=== PATIENT | female | born 1965 | race Two or more races ===

== ENCOUNTER 2017-11-18 10:29 | Inpatient (IN) | payer MEDICAID ==
[~2017-11-18] VITALS: Ht 165.1 cm; Wt 72.6 kg
[2017-11-18] VITALS (11 sets, daily range): BP systolic 105–118; BP diastolic 67–88
[2017-11-18] MEDS ORDERED: LORazepam Inj 2mg/ml 1ml IV ONE (10:45)
[2017-11-18] MEDS ORDERED: MILK OF MA2400 MG/10 ORAL (10:52)
[2017-11-18] MEDS ORDERED: SYNTHROID150 MCG ORAL (10:52)
[2017-11-18] MEDS ORDERED: DULCOLAX10 MG RC (10:52)
[2017-11-18] MEDS ORDERED: CIPRO500 MG PO (10:52)
[2017-11-18] MEDS ORDERED: ZOFRAN4 M3 ORAL (10:52)
[2017-11-18] MEDS ORDERED: ROXICODONE15 MG ORAL (10:52)
[2017-11-18] MEDS ORDERED: MULTI VITAMIN1 EACH ORAL (10:52)
[2017-11-18] MEDS ORDERED: FLEET ENEMA133 ML RECTAL (10:52)
[2017-11-18] MEDS ORDERED: TRAMADOL HCL50 MG ORAL (10:52)
[2017-11-18] MEDS ORDERED: TYLENOL EXTRA500 MG ORAL (10:52)
[2017-11-18] MEDS ORDERED: FERROUS SULFAT325 MG ORAL (10:52)
[2017-11-18] MEDS ORDERED: DOCUSATE SODIU100 MG ORAL (10:52)
[2017-11-18] MEDS ORDERED: levETIRAcetam 500mg/NS100ml 100 ML IVPB ONE (11:00)
[2017-11-18 11:04] LABS: HEMATOCRIT 19.1 % (37.0-47.0); MEAN CORPUSCULAR VOLUME 102 FL (80-99); PLATELET COUNT 20 K/UL (150-450); RED BLOOD COUNT 1.88 M/UL (4.20-5.40); RED CELL DISTRIBUTION WIDTH 37.9 % (11.6-14.8)
[2017-11-18 11:08] LABS: HEMOGLOBIN 6.2 G/DL (12.0-16.0); WHITE BLOOD COUNT 31.2 K/UL (4.8-10.8)
[2017-11-18 11:12] LABS: INR 1.5 (0.9-1.1)
[2017-11-18 11:16] LABS: AMMONIA 59 umol/L (11-32); ANION GAP 18 mmol/L (5-15); BLOOD UREA NITROGEN 88 mg/dL (7-18); CARBON DIOXIDE 17 MMOL/L (21-32); CHLORIDE 101 MMOL/L (98-107); SODIUM 136 MMOL/L (136-145)
[2017-11-18 11:27] LABS: ALANINE AMINOTRANSFERASE 273 U/L (12-78); ALBUMIN 2.3 G/DL (3.4-5.0); ALBUMIN/GLOBULIN RATIO 0.4 (1.0-2.7); ALKALINE PHOSPHATASE 397 U/L (46-116); ASPARTATE AMINO TRANSFERASE 892 U/L (15-37); BILIRUBIN,TOTAL 5.8 MG/DL (0.2-1.0); CREATINE KINASE 200 U/L (26-308)
[2017-11-18] MEDS ORDERED: Pantoprazole Inj IVP ONE (11:30)
[2017-11-18] MEDS ORDERED: Cefepime HCl 1 GM in D5W 55 ML IVPB ONE (11:30)
[2017-11-18 11:31] LABS: BILIRUBIN,DIRECT 3.8 MG/DL (0.0-0.3)
[2017-11-18 11:35] LABS: APPEARANCE,URINE SLIGHTLY CLOUDY; BILIRUBIN, URINE 1+ (NEGATIVE); COLOR,URINE BROWN; GLUCOSE, URINE (UA) NEGATIVE (NEGATIVE); KETONES,URINE NEGATIVE (NEGATIVE); LEUKOCYTE ESTERASE ,URINE 1+ (NEGATIVE); NITRITE,URINE NEGATIVE (NEGATIVE); PH,URINE 5 (4.5-8.0); PROTEIN,URINE 4+ (NEGATIVE); UROBILINOGEN,URINE 4 MG/DL (0.0-1.0)
--- NOTE | 2017-11-18 11:41 | Diagnostic Imaging Report ---
Indication: Abdominal pain Technique: XRAY Chest 1v Comparison: None Findings: Heart is within normal limits. A right arm PICC line has its catheter tip the region of the lower SVC. There is a linear density overlying the right midlung which is likely artifactual. Lung markings are noted past this line. No definite pneumothorax. No pleural effusion or focal airspace consolidation. There are degenerative changes of the spine. No acute osseous abnormality. Impression: Limited exam. No definite focal consolidation, pleural effusion or pneumothorax. Curvilinear density projecting of the right lung likely artifactual
[2017-11-18] MEDS ORDERED: Phytonadione 10 mg/mL 1ml amp SUBQ ONE (11:45)
--- NOTE | 2017-11-18 11:46 | Emergency Room Report ---
History of Present Illness General Chief Complaint: Dyspnea/Respdistress Source: Patient, Medical Record Present Illness HPI Patient was supposed to go to [facility] to get a blood transfusion and became altered. Paramedics were called. Accucheck 141. Paramedics noted gaze deviated to R with beating of eyes. No other tonic/clonic activity. No h/o head trauma. Apparently labs were done which showed high WBC (20) and low H/H 6/1. H/O CHF and asthma Recent admission to [facility] for CHF and dx with RUQ mass and liver with cysts and possible masses. H/O hepatitis B and C without h/o encephalopathy. Hypothyroidism No advanced directives or POLST at [facility]. Patient obtunded and unable to give history. Allergies: Coded Allergies: No Known Allergies (Unverified , 11/18/17) Patient History Limited by: medical condition Past Medical History: see triage record, old chart reviewed Social History Narrative from [facility] Reviewed Nursing Documentation: PMH: Agreed; PSxH: Agreed Nursing Documentation-PMH Past Medical History: No History, Except For Hx Cardiac Problems: Yes - HF, hypothyroidism Hx Asthma: Yes Review of Systems All Other Systems: limited Physical Exam Vital Signs Date Time Temp Pulse Resp B/P (MAP) Pulse Ox O2 Delivery O2 Flow Rate FiO2 11/18/17 10:30 97.7 97 20 70/26 100 Non-Rebreather 15.0 97.7 Sp02 EP Interpretation: reviewed, normal General Appearance: lethargic, obese, other - responding minimally to name - gaze still to R upper with nystagmus, Chronically Ill Eyes: bilateral eye PERRL, bilateral eye abnormal EOM, bilateral eye conjunctivae pale, bilateral eye scleral icterus ENT: moist mucus membranes Neck: other - head slightly turned to R Respiratory: decreased breath sounds, other - no wheezes Cardiovascular #1: regular rate, rhythm, edema - minimal Cardiovascular #2: 2+ radial (R) - PICC line R antecubital, 2+ radial (L), 2+ femoral (R) Gastrointestinal: decreased bowel sounds, overweight Rectal: heme positive stool - loose lightl brown Musculoskeletal: other - moves all 4 but minimally, no deformity Neurologic: DTRs symmetric, sensory intact, motor weakness, other - gaze deviation R with vertical nystagmus, min gag Psychiatric: other - stupor/possible sz, but attempts to look at person calling name Skin: pallor, jaundice Procedures Critical Care Time Critical Care Time Total Critical Care Time: 120 min bedside evaluation and treatment excludes procedures (EKG). Reason for critical care: severe sepsis, GI bleed, anemia, + troponin, renal failure, coagulopathy, thrombocytopenia Possible complications: hypotension, hypertension, NC, shock, arrhythmias, metabolic acidosis, end organ damage, respiratory failure. Interventions: fluid resuscitation, antibiotics, protonix, vitamin K , blood, platelets, arrange consultation, assess need for intubation, treatment of focal seizure Course: Patient with ALOC - focal seizure. Discussion with EMS. Ativan/Keppra - improved mentation. Hypotension - fluid resuscitation. Critical anemia and GI bleed - blood ordered, discussed with blood bank also regarding platelets, protonix ordered. Coagulopathy - Vit K ordered. Discussed with pathologist. Reassessment. WBC high - antibiotics ordered. Concern over CHF, but no evidence on CXR. Unable to get answer from patient regarding level of care. Poor O2 tracing - ABG ordered. Not need intubation at this time, but suggest CO2 monitor. See med notes. VS and condition better, however patient still critical on transfer to ICU. Consultations: nursing staff, EMS, GI, cardiology, inf dis, RT, blood bank, pathologist, admitting MD Performed by: Dr. Lovell Tolerated well condition = critical Medical Decision Making Diagnostic Impression: Primary Impression: Focal seizure Additional Impressions: GI bleed Qualified Codes: K92.2 - Gastrointestinal hemorrhage, unspecified Thrombocytpenia Coagulopathy Sepsis Qualified Codes: A41.9 - Sepsis, unspecified organism Hepatic encephalopathy Profound anemia Qualified Codes: D64.9 - Anemia, unspecified DAVID (acute kidney injury) UTI (urinary tract infection) Qualified Codes: N39.0 - Urinary tract infection, site not specified Elevated lipase Hepatitis C Qualified Codes: B18.2 - Chronic viral hepatitis C ER Course Patient presents with nystagmus and gaze to R which could either a focal seizure or bleed. Immediately will treat the patient with Ativan and start emergent w/u. Extremely ill and complicated patient. The nystagmus stopped on its own and the patient had a period of being postictal. After this moving all 4 and fighting with staff and verbalizing. EOM now full. Pupils equal. Transient hypotension improved with fluids. White count is elevated H&H is low platelets are 20,000. Blood bank alerted of need for blood and platelets. Also BC and antibiotics ordered. Keppra ordered for focal seizure. Elevated LFTs, lipase and INR. Vitamin K given. CXR clear and no evidence of CHF or infiltrate. Fluid resuscitation performed. ( Anticipate giving blood.) Pantoprazole given for possible upper GI source of bleed. Records from [facility] reviewed. Elevated BUN creat. Patient's troponin is positive. EKG with low voltage, no hyperacute changes. Platelets are low and the patient has a coagulopathy and therefore aspirin is held at this time. Calling to do speak with the cash shortage investigator and the admitting physician at 1135. Discussed with Dr. Negron @ 11:40. BP better, going to CT. CT no bleed. Discussed with Dr. Singh @ 12:00. Agrees with no aspirin. Focus on physiologic support (blood, bp...) Attempt to speak to patient regarding level of care. Unable to answer any questions at this time. Mr. Thorne here examine patient and old records for GI. Pathologist called to report schistocytes and nucleated RBCs. Dr. Gallagher here examine patient and discussion of antibiotics. Patient improved VS. Possible hypoxia (poor tracing of pulse ox). ABG ordered. I assisted drawing this at bedside. ABG with good oxygenation and compensated metabolic acidosis. Hold off intubation and suggested CO2 monitoring. Admitted ICU. Condition critical. Laboratory Tests Test 11/18/17 10:45 11/18/17 11:00 11/18/17 14:19 11/18/17 18:10 White Blood Count 31.2 K/UL (4.8-10.8) *H Red Blood Count 1.88 M/UL (4.20-5.40) L Hemoglobin 6.2 G/DL (12.0-16.0) *L Hematocrit 19.1 % (37.0-47.0) L Mean Corpuscular Volume 102 FL (80-99) H Mean Corpuscular Hemoglobin 33.2 PG (27.0-31.0) H Mean Corpuscular Hemoglobin Concent 32.7 G/DL (32.0-36.0) Red Cell Distribution Width 37.9 % (11.6-14.8) H Platelet Count 20 K/UL (150-450) L Mean Platelet Volume 5.2 FL (6.5-10.1) L Neutrophils (%) (Auto) % (45.0-75.0) Lymphocytes (%) (Auto) % (20.0-45.0) Monocytes (%) (Auto) % (1.0-10.0) Eosinophils (%) (Auto) % (0.0-3.0) Basophils (%) (Auto) % (0.0-2.0) Differential Total Cells Counted 100 Neutrophils % (Manual) 61 % (45-75) Lymphocytes % (Manual) 21 % (20-45) Monocytes % (Manual) 11 % (1-10) H Eosinophils % (Manual) 0 % (0-3) Basophils % (Manual) 0 % (0-2) Metamyelocytes % 6 % (0-0) H Myelocytes % 1 % (0-0) H Band Neutrophils 0 % (0-8) Nucleated Red Blood Cells 28 /100 WBC Other Cell Type Pathologist comment Platelet Estimate Adequate Platelet Morphology Normal Clumped Platelets 1+ Polychromasia 2+ Anisocytosis 3+ Macrocytosis 2+ Target Cells 1+ Schistocytes 2+ Prothrombin Time 15.3 SEC (9.30-11.50) H Prothrombin Time INR 1.5 (0.9-1.1) H PTT 26 SEC (23-33) Sodium Level 136 MMOL/L (136-145) Potassium Level 5.0 MMOL/L (3.5-5.1) Chloride Level 101 MMOL/L (98-107) Carbon Dioxide Level 17 MMOL/L (21-32) L Anion Gap 18 mmol/L (5-15) H Blood Urea Nitrogen 88 mg/dL (7-18) H Creatinine 4.0 MG/DL (0.55-1.30) H Estimate Glomerular Filtration Rate 11.7 mL/min (>60) Glucose Level 151 MG/DL (74-106) H Calcium Level 9.0 MG/DL (8.5-10.1) Total Bilirubin 5.8 MG/DL (0.2-1.0) H Direct Bilirubin 3.8 MG/DL (0.0-0.3) H Aspartate Amino Transferase (AST) 892 U/L (15-37) H Alanine Aminotransferase (ALT) 273 U/L (12-78) H Alkaline Phosphatase 397 U/L (46-116) H Ammonia 59 umol/L (11-32) H Total Creatine Kinase 200 U/L (26-308) Troponin I 1.276 ng/mL (0.000-0.056) 1.379 ng/mL (0.000-0.056) Pro-B-Type Natriuretic Peptide 3063 pg/mL (0-125) H Total Protein 7.9 G/DL (6.4-8.2) Albumin 2.3 G/DL (3.4-5.0) L Globulin 5.6 g/dL Albumin/Globulin Ratio 0.4 (1.0-2.7) L Lipase 586 U/L (73-393) H Urine Color Brown Urine Appearance Slightly cloudy Urine pH 5 (4.5-8.0) Urine Specific [place] 1.015 (1.005-1.035) Urine Protein 4+ (NEGATIVE) H Urine Glucose (UA) Negative (NEGATIVE) Urine Ketones Negative (NEGATIVE) Urine Occult Blood 5+ (NEGATIVE) H Urine Nitrite Negative (NEGATIVE) Urine Bilirubin 1+ (NEGATIVE) H Urine Ictotest Negative Urine Urobilinogen 4 MG/DL (0.0-1.0) H Urine Leukocyte Esterase 1+ (NEGATIVE) H Urine RBC 5-10 /HPF (0 - 2) H Urine WBC 5-10 /HPF (0 - 2) H Urine Squamous Epithelial Cells Few /LPF (NONE/OCC) Urine Amorphous Sediment Moderate /LPF (NONE) H Urine Bacteria Many /HPF (NONE) H Urine Opiates Screen Negative (NEGATIVE) Urine Barbiturates Screen Negative (NEGATIVE) Phencyclidine (PCP) Screen Negative (NEGATIVE) Urine Amphetamines Screen Negative (NEGATIVE) Urine Benzodiazepines Screen Negative (NEGATIVE) Urine Cocaine Screen Negative (NEGATIVE) Urine Marijuana (THC) Screen Negative (NEGATIVE) Arterial Blood pH 7.390 (7.350-7.450) Arterial Blood Partial Pressure CO2 24.3 mmHg (35.0-45.0) *L Arterial Blood Partial Pressure O2 205.6 mmHg (75.0-100.0) H Arterial Blood HCO3 14.4 mmol/L (22.0-26.0) L Arterial Blood Oxygen Saturation 99.8 % (92.0-98.0) H Arterial Blood Base Excess 9.2 Cristobal Test Positive Hepatitis A IgM Antibody Pending Hepatitis B Surface Antigen Pending Hepatitis B Core IgM Antibody Pending Hepatitis C Antibody Pending EKG Diagnostic Results Rate: normal Rhythm: NSR ST Segments: no acute changes - low voltage Rhythm Strip Diag. Results EP Interpretation: yes Rhythm: NSR, no PVC's, no ectopy Chest X-Ray Diagnostic Results Chest X-Ray Diagnostic Results : Chest X-Ray Ordered: Yes # of Views/Limited/Complete: 1 View Indication: Other Interpretation: no consolidation, no effusion, no pneumothorax Impression: Other Electronically Signed by: Electronically signed by Jacinto Lovell MD Last Vital Signs Date Time Temp Pulse Resp B/P (MAP) Pulse Ox O2 Delivery O2 Flow Rate FiO2 11/18/17 19:00 98.6 82 23 113/74 (87) 96 98.6 11/18/17 16:00 Venturi Mask 55.0 Status: improved Disposition: ADMITTED INPATIENT Condition: Critical Referrals: [facility],REFERRING (PCP) Jacinto Lovell M.D. Nov 18, 2017 11:46
--- NOTE | 2017-11-18 12:29 | Diagnostic Imaging Report ---
Indication: Altered mental status Technique: Continuous helical CT scanning of the head was performed utilizing automated exposure control without intravenous contrast material. Axial and coronal reconstructions were obtained. Comparison: None CT dose: Total DLP 1629.44 mGycm; CTDI vol 70.38 mGy Findings: There is no acute intracranial hemorrhage, mass effect or cortical edema. The ventricles, cisterns and sulci are within normal limits for age. Mastoid air cells are clear. There is complete opacification of the right maxillary sinus. No focal lesions of the bony calvarium or soft tissues of the scalp are seen. IMPRESSION: No evidence of acute intracranial hemorrhage, mass effect or cortical edema. MRI may be obtained for more sensitive evaluation as clinically indicated. Sinus disease with complete opacification of the right maxillary sinus. The CT scanner at [facility] is accredited by the [employer] and the scans are performed using protocols designed to limit radiation exposure to as low as reasonably achievable to attain images of sufficient resolution adequate for diagnostic evaluation.
--- NOTE | 2017-11-18 14:24 | GI Initial Consult Note ---
History of Present Illness General Date patient seen: Nov 18, 2017 Time patient seen: 14:03 Reason for Hospitalization: Dyspnea/Respdistress Referring physician: MELISA DEL VALLE Reason for Consultation: SEVERE ANEMIA Present Illness HPI Patient was on the way to [facility] to get a blood transfusion and became altered. She is a history of an abdominal mass. GI consulted for severe anemia. ROS limited, pt unable to answer any questions at this time. Per RN, has periods of anxiety. All information obtained from medical record. The patient has generalized jaundice. Has history of Hepatitis C without treatment, possible active ?hepatitis B infection , multiple liver masses and CBD dilation 8mm as noted on a recent CT from [facility]. In addition, was noted to have masses on the left adnexal, possible ovarian cysts vs neoplasm. Per report, liver mass biopsy was performed, but no results found in the chart. She presents today with macrocytic hyperchromic anemia, thrombocytopenia, severe LFT elevation and elevated lipase levels. Unknown history of endoscopy / colonoscopy at this time. Home Meds Reported Medications Ondansetron* (ZOFRAN*) 4 Mg Tablet, 4 MG ORAL Q6H PRN for Nausea & Vomiting, TAB 11/18/17 Acetaminophen* (TYLENOL EXTRA STRENGTH*) 500 Mg Tablet, 325 MG ORAL Q8HR PRN for Mild Pain/Temp > 100.5, TAB 0 Refills 11/18/17 Tramadol Hcl* (ULTRAM*) 50 Mg Tablet, 50 MG ORAL Q12HR PRN for For Pain, #30 TAB 0 Refills 11/18/17 Levothyroxine Sodium* (SYNTHROID*) 150 Mcg Tablet, 175 MCG ORAL DAILY, TAB Take in the morning on an empty stomach, at least 30 minutes before food. 11/18/17 OXYCODONE HCl* (ROXICODONE*) 15 Mg Tablet, 10 MG ORAL Q4HR PRN for For Pain, TAB 11/18/17 Multivitamin (MULTI VITAMIN DAILY) 1 Each Tablet, 1 TAB ORAL DAILY, #30 TAB 0 Refills 11/18/17 Magnesium Hydroxide* (MILK OF MAGNESIA*) 2,400 Mg/10 Ml Oral.susp, 30 ML ORAL DAILY, ML 11/18/17 Na Phos,M-B/Na Phos,Di-Ba* (FLEET ENEMA*) 133 Ml Enema, 133 ML RECTAL PRN, ML 0 Refills 11/18/17 Ferrous Sulfate* (FERROUS SULFATE*) 325 Mg Tablet, 325 MG ORAL TWICE A DAY, #60 TAB 0 Refills 11/18/17 Bisacodyl (DULCOLAX) 10 Mg Supp.rect, 10 MG RC PRN, SUPP 11/18/17 Docusate Sodium* (DOCUSATE SODIUM*) 100 Mg Capsule, 100 MG ORAL DAILY, CAP 11/18/17 Ciprofloxacin* (CIPRO*) 500 Mg Tablet, 250 MG PO BID, #14 TAB 11/18/17 Med list reviewed/reconciled: Yes Allergies: Coded Allergies: No Known Allergies (Unverified , 11/18/17) Patient History Limited by: medical condition History Provided By: Medical Record [facility] Narrative Past Medical History: No History, Except For Hx Cardiac Problems: Yes - HF, hypothyroidism Hx Asthma: Yes Past Surgical History: other Social History: Reports: other - unknown Review of Systems All Other Systems: limited Physical Exam Vital Signs Date Time Temp Pulse Resp B/P (MAP) Pulse Ox O2 Delivery O2 Flow Rate FiO2 11/18/17 10:30 97.7 97 20 70/26 100 Non-Rebreather 15.0 97.7 Sp02 EP Interpretation: reviewed, normal Labs Laboratory Tests Test 11/18/17 10:45 11/18/17 11:00 White Blood Count 31.2 K/UL (4.8-10.8) *H Red Blood Count 1.88 M/UL (4.20-5.40) L Hemoglobin 6.2 G/DL (12.0-16.0) *L Hematocrit 19.1 % (37.0-47.0) L Mean Corpuscular Volume 102 FL (80-99) H Mean Corpuscular Hemoglobin 33.2 PG (27.0-31.0) H Mean Corpuscular Hemoglobin Concent 32.7 G/DL (32.0-36.0) Red Cell Distribution Width 37.9 % (11.6-14.8) H Platelet Count 20 K/UL (150-450) L Mean Platelet Volume 5.2 FL (6.5-10.1) L Neutrophils (%) (Auto) % (45.0-75.0) Lymphocytes (%) (Auto) % (20.0-45.0) Monocytes (%) (Auto) % (1.0-10.0) Eosinophils (%) (Auto) % (0.0-3.0) Basophils (%) (Auto) % (0.0-2.0) Differential Total Cells Counted 100 Neutrophils % (Manual) 61 % (45-75) Lymphocytes % (Manual) 21 % (20-45) Monocytes % (Manual) 11 % (1-10) H Eosinophils % (Manual) 0 % (0-3) Basophils % (Manual) 0 % (0-2) Metamyelocytes % 6 % (0-0) H Myelocytes % 1 % (0-0) H Band Neutrophils 0 % (0-8) Nucleated Red Blood Cells 28 /100 WBC Other Cell Type Pathologist comment Platelet Estimate Adequate Platelet Morphology Normal Clumped Platelets 1+ Polychromasia 2+ Anisocytosis 3+ Macrocytosis 2+ Target Cells 1+ Schistocytes 2+ Prothrombin Time 15.3 SEC (9.30-11.50) H Prothromb Time International Ratio 1.5 (0.9-1.1) H Activated Partial Thromboplast Time 26 SEC (23-33) Sodium Level 136 MMOL/L (136-145) Potassium Level 5.0 MMOL/L (3.5-5.1) Chloride Level 101 MMOL/L (98-107) Carbon Dioxide Level 17 MMOL/L (21-32) L Anion Gap 18 mmol/L (5-15) H Blood Urea Nitrogen 88 mg/dL (7-18) H Creatinine 4.0 MG/DL (0.55-1.30) H Estimat Glomerular Filtration Rate 11.7 mL/min (>60) Glucose Level 151 MG/DL (74-106) H Calcium Level 9.0 MG/DL (8.5-10.1) Total Bilirubin 5.8 MG/DL (0.2-1.0) H Direct Bilirubin 3.8 MG/DL (0.0-0.3) H Aspartate Amino Transf (AST/SGOT) 892 U/L (15-37) H Alanine Aminotransferase (ALT/SGPT) 273 U/L (12-78) H Alkaline Phosphatase 397 U/L (46-116) H Ammonia 59 umol/L (11-32) H Total Creatine Kinase 200 U/L (26-308) Troponin I 1.276 ng/mL (0.000-0.056) Pro-B-Type Natriuretic Peptide 3063 pg/mL (0-125) H Total Protein 7.9 G/DL (6.4-8.2) Albumin 2.3 G/DL (3.4-5.0) L Globulin 5.6 g/dL Albumin/Globulin Ratio 0.4 (1.0-2.7) L Lipase 586 U/L (73-393) H Urine Color Brown Urine Appearance Slightly cloudy Urine pH 5 (4.5-8.0) Urine Specific [place] 1.015 (1.005-1.035) Urine Protein 4+ (NEGATIVE) H Urine Glucose (UA) Negative (NEGATIVE) Urine Ketones Negative (NEGATIVE) Urine Occult Blood 5+ (NEGATIVE) H Urine Nitrite Negative (NEGATIVE) Urine Bilirubin 1+ (NEGATIVE) H Urine Ictotest Negative Urine Urobilinogen 4 MG/DL (0.0-1.0) H Urine Leukocyte Esterase 1+ (NEGATIVE) H Urine RBC 5-10 /HPF (0 - 2) H Urine WBC 5-10 /HPF (0 - 2) H Urine Squamous Epithelial Cells Few /LPF (NONE/OCC) Urine Amorphous Sediment Moderate /LPF (NONE) H Urine Bacteria Many /HPF (NONE) H Urine Opiates Screen Negative (NEGATIVE) Urine Barbiturates Screen Negative (NEGATIVE) Phencyclidine (PCP) Screen Negative (NEGATIVE) Urine Amphetamines Screen Negative (NEGATIVE) Urine Benzodiazepines Screen Negative (NEGATIVE) Urine Cocaine Screen Negative (NEGATIVE) Urine Marijuana (THC) Screen Negative (NEGATIVE) General Appearance: no apparent distress, other - generalized jaundice Head: normocephalic EENT: PERRL/EOMI, normal ENT inspection Neck: supple Respiratory: normal breath sounds, no respiratory distress Cardiovascular: normal rate Gastrointestinal: normal inspection, non tender, soft, normal bowel sounds, non -distended Rectal: deferred Genitourinary: no CVA tenderness Musculoskeletal: normal inspection, back normal Neurologic: alert, responsive Skin: normal inspection, no rash, warm/dry, palpation normal, well hydrated, jaundice Lymphatic: no adenopathy Current Medications Current Medications Medications (Trade) Dose Ordered Sig/Lluvia Route PRN Reason Start Time Stop Time Status Last Admin Dose Admin Aztreonam 1 gm/ Dextrose 55 ml @ 110 mls/hr Q8HR IVPB 11/18/17 14:00 11/25/17 13:59 UNV Daptomycin 300 mg/ Sodium Chloride 55 ml @ 100 mls/hr Q48H IV 11/18/17 14:00 11/25/17 13:59 UNV Sodium Chloride 1,000 ml @ 300 mls/hr Q3H20M IV 11/18/17 10:45 12/18/17 10:44 11/18/17 12:34 GI: Plan Problems: (1) Anemia (2) Hepatitis C (3) Hepatitis B (4) Ovarian mass (5) LFT elevation (6) Elevated lipase (7) Liver lesion (8) GI bleed Plan Abdominal U/S reviewed >> possible liver masses CTAP reviewed >> see full report in physical chart. - CBD 8mm dilation. - multiple liver lesions - possible ovarian cyst vs neoplasm utox negative most concerning for liver vs ovarian metastasis causing severe LFT elevation>> consider oncology consult obtain biopsy results of liver lesion from [place]. anemia work up OB stool r/o GI bleed monitor H&H, prn transfusions bowel regime ppi check HSV, CMV autoimmune markers >> CONNIE, SMA, IgG tumor markers >> CEA, CA-125, AFP trend lipase fu labs Discussed with Dr. Atkins. Thank you for this patient referral, we will follow. The patient was seen and examined at bedside and all new and available data was reviewed in the patients chart. I agree with the above findings, impression and plan. (Patient seen earlier today. Signature stamp does not reflect patient encounter time.). - MD Fadumo Buck,[facility] METHODS ENGINEER Nov 18, 2017 14:24
--- NOTE | 2017-11-18 14:57 | Infectious Diseases Prog Note ---
Assessment/Plan Problems: (1) Leukocytosis Assessment & Plan: rule out sepsis , will start daptomycin and aztreonam pending blood culture , monitor WBC (2) Hypotension Assessment & Plan: suspect due to anemia , rule out sepsis, continue wide spectrum antibiotics pending cultures , transfuse blood as needed (3) DAVID (acute kidney injury) Assessment & Plan: due to the above, continue hydration and blood transfusion , monitor UOP, avoid nephrotoxics , consult renal (4) LFT elevation Assessment & Plan: suspect liver shock , will order hepatitis panel , monitor LFT closely (5) Focal seizure Assessment & Plan: etiology?, consult neurology continue neuro check (6) GI bleed Assessment & Plan: monitor H/H , transfuse as needed , GI following (7) UTI (urinary tract infection) Assessment & Plan: on aztreonam already pending culture Subjective Allergies: Coded Allergies: No Known Allergies (Unverified , 11/18/17) Objective Vital Signs Last 24 Hour Vital Signs Date Time Temp Pulse Resp B/P (MAP) Pulse Ox O2 Delivery O2 Flow Rate FiO2 11/18/17 14:40 98.3 72 20 98.3 11/18/17 14:10 98.0 76 18 98.0 11/18/17 14:00 98.0 76 18 118/88 90 Simple Mask 10.0 98.0 11/18/17 13:40 97.4 76 18 97.4 11/18/17 13:35 97.2 79 16 97.2 11/18/17 13:30 97.0 77 16 97.0 11/18/17 13:25 97.0 77 14 97.0 11/18/17 12:00 78 16 113/76 98 Nasal Cannula 5.0 11/18/17 10:40 Non-Rebreather 15.0 11/18/17 10:30 97.7 97 20 70/26 100 Non-Rebreather 15.0 97.7 Height (Feet): 5 Height (Inches): 5.00 Weight (Pounds): 110 Laboratory Tests Test 11/18/17 10:45 11/18/17 11:00 White Blood Count 31.2 K/UL (4.8-10.8) *H Red Blood Count 1.88 M/UL (4.20-5.40) L Hemoglobin 6.2 G/DL (12.0-16.0) *L Hematocrit 19.1 % (37.0-47.0) L Mean Corpuscular Volume 102 FL (80-99) H Mean Corpuscular Hemoglobin 33.2 PG (27.0-31.0) H Mean Corpuscular Hemoglobin Concent 32.7 G/DL (32.0-36.0) Red Cell Distribution Width 37.9 % (11.6-14.8) H Platelet Count 20 K/UL (150-450) L Mean Platelet Volume 5.2 FL (6.5-10.1) L Neutrophils (%) (Auto) % (45.0-75.0) Lymphocytes (%) (Auto) % (20.0-45.0) Monocytes (%) (Auto) % (1.0-10.0) Eosinophils (%) (Auto) % (0.0-3.0) Basophils (%) (Auto) % (0.0-2.0) Differential Total Cells Counted 100 Neutrophils % (Manual) 61 % (45-75) Lymphocytes % (Manual) 21 % (20-45) Monocytes % (Manual) 11 % (1-10) H Eosinophils % (Manual) 0 % (0-3) Basophils % (Manual) 0 % (0-2) Metamyelocytes % 6 % (0-0) H Myelocytes % 1 % (0-0) H Band Neutrophils 0 % (0-8) Nucleated Red Blood Cells 28 /100 WBC Other Cell Type Pathologist comment Platelet Estimate Adequate Platelet Morphology Normal Clumped Platelets 1+ Polychromasia 2+ Anisocytosis 3+ Macrocytosis 2+ Target Cells 1+ Schistocytes 2+ Prothrombin Time 15.3 SEC (9.30-11.50) H Prothromb Time International Ratio 1.5 (0.9-1.1) H Activated Partial Thromboplast Time 26 SEC (23-33) Sodium Level 136 MMOL/L (136-145) Potassium Level 5.0 MMOL/L (3.5-5.1) Chloride Level 101 MMOL/L (98-107) Carbon Dioxide Level 17 MMOL/L (21-32) L Anion Gap 18 mmol/L (5-15) H Blood Urea Nitrogen 88 mg/dL (7-18) H Creatinine 4.0 MG/DL (0.55-1.30) H Estimat Glomerular Filtration Rate 11.7 mL/min (>60) Glucose Level 151 MG/DL (74-106) H Calcium Level 9.0 MG/DL (8.5-10.1) Total Bilirubin 5.8 MG/DL (0.2-1.0) H Direct Bilirubin 3.8 MG/DL (0.0-0.3) H Aspartate Amino Transf (AST/SGOT) 892 U/L (15-37) H Alanine Aminotransferase (ALT/SGPT) 273 U/L (12-78) H Alkaline Phosphatase 397 U/L (46-116) H Ammonia 59 umol/L (11-32) H Total Creatine Kinase 200 U/L (26-308) Troponin I 1.276 ng/mL (0.000-0.056) Pro-B-Type Natriuretic Peptide 3063 pg/mL (0-125) H Total Protein 7.9 G/DL (6.4-8.2) Albumin 2.3 G/DL (3.4-5.0) L Globulin 5.6 g/dL Albumin/Globulin Ratio 0.4 (1.0-2.7) L Lipase 586 U/L (73-393) H Urine Color Brown Urine Appearance Slightly cloudy Urine pH 5 (4.5-8.0) Urine Specific [place] 1.015 (1.005-1.035) Urine Protein 4+ (NEGATIVE) H Urine Glucose (UA) Negative (NEGATIVE) Urine Ketones Negative (NEGATIVE) Urine Occult Blood 5+ (NEGATIVE) H Urine Nitrite Negative (NEGATIVE) Urine Bilirubin 1+ (NEGATIVE) H Urine Ictotest Negative Urine Urobilinogen 4 MG/DL (0.0-1.0) H Urine Leukocyte Esterase 1+ (NEGATIVE) H Urine RBC 5-10 /HPF (0 - 2) H Urine WBC 5-10 /HPF (0 - 2) H Urine Squamous Epithelial Cells Few /LPF (NONE/OCC) Urine Amorphous Sediment Moderate /LPF (NONE) H Urine Bacteria Many /HPF (NONE) H Urine Opiates Screen Negative (NEGATIVE) Urine Barbiturates Screen Negative (NEGATIVE) Phencyclidine (PCP) Screen Negative (NEGATIVE) Urine Amphetamines Screen Negative (NEGATIVE) Urine Benzodiazepines Screen Negative (NEGATIVE) Urine Cocaine Screen Negative (NEGATIVE) Urine Marijuana (THC) Screen Negative (NEGATIVE) Current Medications Medications (Trade) Dose Ordered Sig/Lluvia Route PRN Reason Start Time Stop Time Status Last Admin Dose Admin Aztreonam 1 gm/ Dextrose 55 ml @ 110 mls/hr Q8H IVPB 11/18/17 17:00 11/25/17 16:59 Daptomycin 300 mg/ Sodium Chloride 55 ml @ 100 mls/hr Q48H IV 11/18/17 18:00 11/25/17 17:59 Sodium Chloride 1,000 ml @ 300 mls/hr Q3H20M IV 11/18/17 10:45 12/18/17 10:44 11/18/17 12:34 Ann Gallagher M.D. Nov 18, 2017 14:57
[2017-11-18] MEDS: Aztreonam Inj 1 GM in D5W 55 ML IVPB SCH (17:00)
[2017-11-18] MEDS ORDERED: DAPTOmycin 300 MG in NS 55 ML IV SCH (18:00)
--- NOTE | 2017-11-18 18:38 | Cardiology Progress Note ---
Assessment/Plan Assessment/Plan [id number] cardia enzyme abn likey demand related due to profound thrombocytopenias anemia n renal failure pt is not a candidate for any antiplt of anticoagulant repeat ekg adn echo and torp transfuse prbc gi fu lacutlose ? seem qutie ill and at isk f dying Objective Last 24 Hour Vital Signs Date Time Temp Pulse Resp B/P (MAP) Pulse Ox O2 Delivery O2 Flow Rate FiO2 11/18/17 17:00 75 23 116/76 (89) 98 11/18/17 16:00 97.9 75 20 116/76 (89) 98 97.9 11/18/17 16:00 Venturi Mask 55.0 11/18/17 16:00 Venturi Mask 50.0 11/18/17 16:00 75 11/18/17 15:45 98.2 73 27 112/76 100 Simple Mask 15.0 98.2 11/18/17 15:02 98.2 73 27 112/76 100 Simple Mask 15.0 98.2 11/18/17 14:40 98.3 72 20 98.3 11/18/17 14:10 98.0 76 18 98.0 11/18/17 14:00 98.0 76 18 118/88 90 Simple Mask 10.0 98.0 11/18/17 13:40 97.4 76 18 97.4 11/18/17 13:35 97.2 79 16 97.2 11/18/17 13:30 97.0 77 16 97.0 11/18/17 13:25 97.0 77 14 97.0 11/18/17 12:00 78 16 113/76 98 Nasal Cannula 5.0 11/18/17 10:40 Non-Rebreather 15.0 11/18/17 10:30 97.7 97 20 70/26 100 Non-Rebreather 15.0 97.7 Laboratory Tests Test 11/18/17 10:45 11/18/17 11:00 11/18/17 14:19 White Blood Count 31.2 K/UL (4.8-10.8) *H Red Blood Count 1.88 M/UL (4.20-5.40) L Hemoglobin 6.2 G/DL (12.0-16.0) *L Hematocrit 19.1 % (37.0-47.0) L Mean Corpuscular Volume 102 FL (80-99) H Mean Corpuscular Hemoglobin 33.2 PG (27.0-31.0) H Mean Corpuscular Hemoglobin Concent 32.7 G/DL (32.0-36.0) Red Cell Distribution Width 37.9 % (11.6-14.8) H Platelet Count 20 K/UL (150-450) L Mean Platelet Volume 5.2 FL (6.5-10.1) L Neutrophils (%) (Auto) % (45.0-75.0) Lymphocytes (%) (Auto) % (20.0-45.0) Monocytes (%) (Auto) % (1.0-10.0) Eosinophils (%) (Auto) % (0.0-3.0) Basophils (%) (Auto) % (0.0-2.0) Differential Total Cells Counted 100 Neutrophils % (Manual) 61 % (45-75) Lymphocytes % (Manual) 21 % (20-45) Monocytes % (Manual) 11 % (1-10) H Eosinophils % (Manual) 0 % (0-3) Basophils % (Manual) 0 % (0-2) Metamyelocytes % 6 % (0-0) H Myelocytes % 1 % (0-0) H Band Neutrophils 0 % (0-8) Nucleated Red Blood Cells 28 /100 WBC Other Cell Type Pathologist comment Platelet Estimate Adequate Platelet Morphology Normal Clumped Platelets 1+ Polychromasia 2+ Anisocytosis 3+ Macrocytosis 2+ Target Cells 1+ Schistocytes 2+ Prothrombin Time 15.3 SEC (9.30-11.50) H Prothromb Time International Ratio 1.5 (0.9-1.1) H Activated Partial Thromboplast Time 26 SEC (23-33) Sodium Level 136 MMOL/L (136-145) Potassium Level 5.0 MMOL/L (3.5-5.1) Chloride Level 101 MMOL/L (98-107) Carbon Dioxide Level 17 MMOL/L (21-32) L Anion Gap 18 mmol/L (5-15) H Blood Urea Nitrogen 88 mg/dL (7-18) H Creatinine 4.0 MG/DL (0.55-1.30) H Estimat Glomerular Filtration Rate 11.7 mL/min (>60) Glucose Level 151 MG/DL (74-106) H Calcium Level 9.0 MG/DL (8.5-10.1) Total Bilirubin 5.8 MG/DL (0.2-1.0) H Direct Bilirubin 3.8 MG/DL (0.0-0.3) H Aspartate Amino Transf (AST/SGOT) 892 U/L (15-37) H Alanine Aminotransferase (ALT/SGPT) 273 U/L (12-78) H Alkaline Phosphatase 397 U/L (46-116) H Ammonia 59 umol/L (11-32) H Total Creatine Kinase 200 U/L (26-308) Troponin I 1.276 ng/mL (0.000-0.056) Pro-B-Type Natriuretic Peptide 3063 pg/mL (0-125) H Total Protein 7.9 G/DL (6.4-8.2) Albumin 2.3 G/DL (3.4-5.0) L Globulin 5.6 g/dL Albumin/Globulin Ratio 0.4 (1.0-2.7) L Lipase 586 U/L (73-393) H Urine Color Brown Urine Appearance Slightly cloudy Urine pH 5 (4.5-8.0) Urine Specific [place] 1.015 (1.005-1.035) Urine Protein 4+ (NEGATIVE) H Urine Glucose (UA) Negative (NEGATIVE) Urine Ketones Negative (NEGATIVE) Urine Occult Blood 5+ (NEGATIVE) H Urine Nitrite Negative (NEGATIVE) Urine Bilirubin 1+ (NEGATIVE) H Urine Ictotest Negative Urine Urobilinogen 4 MG/DL (0.0-1.0) H Urine Leukocyte Esterase 1+ (NEGATIVE) H Urine RBC 5-10 /HPF (0 - 2) H Urine WBC 5-10 /HPF (0 - 2) H Urine Squamous Epithelial Cells Few /LPF (NONE/OCC) Urine Amorphous Sediment Moderate /LPF (NONE) H Urine Bacteria Many /HPF (NONE) H Urine Opiates Screen Negative (NEGATIVE) Urine Barbiturates Screen Negative (NEGATIVE) Phencyclidine (PCP) Screen Negative (NEGATIVE) Urine Amphetamines Screen Negative (NEGATIVE) Urine Benzodiazepines Screen Negative (NEGATIVE) Urine Cocaine Screen Negative (NEGATIVE) Urine Marijuana (THC) Screen Negative (NEGATIVE) Arterial Blood pH 7.390 (7.350-7.450) Arterial Blood Partial Pressure CO2 24.3 mmHg (35.0-45.0) *L Arterial Blood Partial Pressure O2 205.6 mmHg (75.0-100.0) H Arterial Blood HCO3 14.4 mmol/L (22.0-26.0) L Arterial Blood Oxygen Saturation 99.8 % (92.0-98.0) H Arterial Blood Base Excess 9.2 Cristobal Test Positive Jake Singh MD Nov 18, 2017 18:38
[2017-11-18] MEDS ORDERED: Dyna-Hex 2% Top Sol 2oz TOPIC SCH (21:00)
--- NOTE | 2017-11-18 23:31 | Consultation ---
DATE OF CONSULTATION: 11/18/2017 INFECTIOUS DISEASES CONSULTATION CONSULTING PHYSICIAN: Ann Gallagher M.D. REQUESTING PHYSICIAN: Mitch Negron M.D. REASON FOR CONSULTATION: Sepsis, leukocytosis with multiple organ failure. Recommendation for antibiotics treatment. HISTORY OF PRESENT ILLNESS: The patient is a 52-year-old female with past medical history of cardiac disease with heart failure, hypothyroidism, asthma who was on her way to [place] for blood transfusion became altered on the road so she was brought in to the emergency room at [facility] with nystagmus. The patient was also having GI bleeding. Her nystagmus was stopped on her own in the emergency room but she continued to be hypotensive with significant leukocytosis in the range of 30,000. Hemoglobin was found to be low, also had platelet which was 20,000. She was started empirically on antibiotics and Infectious Diseases consultation was requested for antibiotics treatment and further management. As of note, the patient was lethargic in the emergency room, responsive to verbal commands by nodding her head but could not provide any good history. History was mainly obtained from the medical record and medical staff. REVIEW OF SYSTEMS: Unable to obtain at this point. The patient is lethargic, unable to provide good history. PAST MEDICAL HISTORY: Significant for cardiac disease, congestive heart failure, hypothyroidism, and asthma. PAST SURGICAL HISTORY: Not on record. ALLERGIES: She has no known drug allergy per record. MEDICATIONS: She received cefepime and metronidazole in the emergency room. For the rest of her medications, please refer to [facility]. SOCIAL HISTORY: The patient unclear where she lives. Unclear whether she used any drugs or alcohol recently. FAMILY HISTORY: Not able to obtain. PHYSICAL EXAMINATION: VITAL SIGNS: Temperature 98.2, pulse 73, respirations 27, blood pressure 112/76, saturation 100% on Ventimask. GENERAL: Middle-aged female, lying in bed, on oxygen via mask, responsive to verbal commands, pale looking with jaundice and her sclera seems comfortable, not in distress. HEENT: Normocephalic and atraumatic. Pupils are reactive to light, jaundiced sclera. Dry oral mucosa. No exudate. NECK: Supple. No lymphadenopathy. CARDIOVASCULAR: Regular rate and rhythm. No murmur or gallop. LUNGS: She had diminished breathing sounds at the bases. No wheezing or rhonchi. Normal breathing efforts. ABDOMEN: Soft. Distended. Not tender. I could not appreciate hepatomegaly or ascites. No rebound. EXTREMITIES: Trace edema. No cyanosis. SKIN: No rash. No hives. LABORATORY AND DIAGNOSTIC DATA: Labs showed white count of 31.2, hemoglobin of 6.2, platelet count of 20. BUN of 88 creatinine of 4. AST of 892 and ALT of 273, alkaline phosphatase 397. Ammonia level of 59. Lipase of 586. Troponin 1.27. Urinalysis showed +1 leukocyte esterase, WBC 5 to 10 with many bacteria. Toxicology screening was negative for drugs. IMAGING: Head CT scan showed no evidence of acute intracranial hemorrhage, mass effect, or cortical edema. Chest x-ray showed limited examination, no definite focal consolidation, pleural effusion or pneumothorax. ASSESSMENT AND RECOMMENDATION: 1. Leukocytosis with hypotension, rule out sepsis. We will start daptomycin renal dosed and aztreonam, pending blood culture and urine culture results. We will deescalate antibiotics based on her clinical progress and culture results and her response to treatment. 2. Hypotension, possible sepsis. Suspect mainly due to anemia. We will continue wide-spectrum antibiotics for now, pending culture, transfuse blood as needed. Monitor hemoglobin and hematocrit, continue fluids for hydration and pressor if needed. 3. Urinary tract infection, the patient already on aztreonam. Pending urine culture results. 4. Acute renal failure due to the above. Continue hydration and blood transfusion to improve renal perfusion. Monitor urine output. Avoid nephrotoxics. Consult Renal. 5. Elevated liver function tests. Suspect liver shock related. We will order hepatitis panel. Monitor liver function closely. 6. Focal seizure with nystagmus, etiology unclear. Recommend Neurology consult. Continue neuro check and intensive care unit. 7. Gastrointestinal bleeding with severe anemia. Monitor hemoglobin and hematocrit. Transfuse as needed. Gastrointestinal team has been already consulted, may need endoscopy. Thank you for the consult. Infectious Disease will continue to follow. Ann Gallagher M.D. DR: Tayo JOB#: [id number] CC:
[2017-11-19] VITALS (24 sets, daily range): BP systolic 101–122; BP diastolic 65–96
[2017-11-19] MEDS: Aztreonam Inj 1 GM in D5W 55 ML IVPB SCH ×3 (01:06→17:25)
--- NOTE | 2017-11-19 03:30 | Consultation ---
DATE OF CONSULTATION: 11/18/2017 CARDIOLOGY CONSULTATION REFERRING PHYSICIAN: Mitch Negron M.D. CONSULTING PHYSICIAN: Jake Singh M.D. REASON FOR REFERRAL: Abnormal cardiac enzymes. HISTORY OF PRESENT ILLNESS: This is an unfortunate middle-aged female who is not able to provide any information. The information is obtained from the patient's chart, which includes data from [facility] where she had previously presented on 11/12/2017 and was diagnosed with multiple lesions in the liver concerning for metastatic lesion. She has a history of cirrhosis, hepatitis C, and hepatitis B. She presented to the hospital for blood transfusion because of anemia that was noted. She was altered and she had apparently a seizure and was brought to the emergency room here at [facility] and was attended to by Dr. Jacinto Lovell. The patient is not able to provide any meaningful history whatsoever. She was noted to have significant thrombocytopenia, significant anemia, and a CT scan was performed. I did discuss the case with Dr. Lovell in the emergency room. At the time of her initial presentation, she had troponin of 1.2. Her EKG was rather benign, and because of severe thrombocytopenia of 20,000 and anemia, she was not a candidate for any antiplatelet or anticoagulation therapy. She remains altered at this time. She is not able to provide any meaningful history. PAST MEDICAL HISTORY: Positive for multiple lesions in the liver concerning for metastatic lesion as far as the discharge summary from [facility] is noted. She has history of cirrhosis; history of hepatitis C, never been treated; and possible hepatitis B and chronic abdominal pain. She underwent a CT-guided biopsy apparently of these lesions in the liver, results are not really available. She was supposed to follow up with [facility] in one week for evaluation of the liver biopsy results. I am not sure if that has happened. She also has a history of asthma, questionable history of CHF, history of HIV infection according to the chart and GI notation by Dr. Deven Edwards, and has had thrombocytopenia, normocytic and normochromic anemia, underlying chronic kidney disease also have been documented in the prior previous notes as well, although she is reportedly not allergic to any medications. SOCIAL HISTORY: Recorded in the chart as not smoking or drinking. She has a history of intravenous drug abuse in the past as noted. FAMILY HISTORY: Denies any family history of major medical problems. REVIEW OF SYSTEMS: Unable to obtain. PHYSICAL EXAMINATION: GENERAL: A middle-aged female, in no respiratory distress. She is rather calm, lying down with head of bed approximately 10 degrees of elevation. Face mask in place. Saturations are unobtainable because of poor tracings. LUNGS: Appear to be clear to auscultation and percussion. CARDIAC: Regular rate. No heaves, thrills, or gallops noted. ABDOMEN: Soft. EXTREMITIES: She has pneumatic compression stockings in place. NEUROLOGIC: She is responsive, but not communicated. LABORATORY AND DIAGNOSTIC DATA: White count of 31.2 with hemoglobin 6.2 and platelet count of 20,000. Sodium is 136, potassium 4.0, chloride 101, bicarbonate 17, BUN of 88, creatinine 4.0, and glucose of 151. Total bilirubin of 5.8 with direct bilirubin of 3.8. AST of 893, ALT of 270, alkaline phosphatase of 397, and ammonia 59. Troponin level 1.276, proBNP of 3063. Albumin of 2.3 and lipase of 586. She had a CT scan of her brain that showed no evidence of intracranial hemorrhage, mass effect, or cortical edema. Sinus disease with complete opacification in right maxillary sinus. A chest x-ray was performed and it is showing limited exam. No focal consolidation, pleural effusions, or pneumothorax are noted. Her electrocardiogram obtained in the emergency room shows normal sinus rhythm, normal QRS axis, really no ST or T-wave abnormalities of any significant degree. ASSESSMENT AND PLAN: 1. Multiple liver masses, felt to be possibly metastatic lesions. 2. Encephalopathy, possibly hepatic in origin. 3. History of cirrhosis. 4. Profound thrombocytopenia. 5. Profound anemia. 6. Abnormal cardiac enzymes, possibly related to demand. 7. Acute renal failure. 8. Abnormal liver function tests secondary to above. Dr. Negron, this patient was seen in cardiac consultation. The patient appears to be rather comfortable at the present time. Certainly with the degree of thrombocytopenia and anemia, she is not a candidate for an antiplatelet or anticoagulation therapy at this time. Repeat cardiac enzymes should be performed. Echocardiogram will be ordered. Repeat EKG will be ordered. She seems to be in and out of some kind of responsive state. She seems to deny any pain at the present time for what it is worth. Nevertheless, with the profound degree of abnormality that she has in her blood testing she is not a candidate for any cardiac treatment or workup at this time and should be treated conservatively. Results of biopsy should be obtained that would include antiplatelet or anticoagulation therapy. She certainly remains critically ill and at risk of dying and should be observed in the intensive care unit for the time being. The duration of this care is 40 minutes. Jake Singh M.D. DR: KIRBY JOB#: [id number] CC:
[2017-11-19 04:50] LABS: HEMATOCRIT 20.3 % (37.0-47.0); HEMOGLOBIN 7.4 G/DL (12.0-16.0); MEAN CORPUSCULAR VOLUME 93 FL (80-99); PLATELET COUNT 63 K/UL (150-450); RED BLOOD COUNT 2.18 M/UL (4.20-5.40); RED CELL DISTRIBUTION WIDTH 32.8 % (11.6-14.8); WHITE BLOOD COUNT 21.3 K/UL (4.8-10.8)
[2017-11-19 07:01] LABS: ALBUMIN/GLOBULIN RATIO 0.4 (1.0-2.7); AMYLASE 97 U/L (25-115); ANION GAP 20 mmol/L (5-15); BILIRUBIN,TOTAL 7.9 MG/DL (0.2-1.0); BLOOD UREA NITROGEN 94 mg/dL (7-18); CALCIUM 9.2 MG/DL (8.5-10.1); CARBON DIOXIDE 15 MMOL/L (21-32); CHLORIDE 106 MMOL/L (98-107); POTASSIUM 4.4 MMOL/L (3.5-5.1); SODIUM 141 MMOL/L (136-145)
[2017-11-19 07:50] LABS: ALANINE AMINOTRANSFERASE 263 U/L (12-78); ALKALINE PHOSPHATASE 357 U/L (46-116); ASPARTATE AMINO TRANSFERASE 1018 U/L (15-37)
[2017-11-19 07:53] LABS: BILIRUBIN,DIRECT 4.2 MG/DL (0.0-0.3)
[2017-11-19] MEDS ORDERED: Pantoprazole Inj IVP SCH (09:00)
--- NOTE | 2017-11-19 10:28 | Cardiology Progress Note ---
Assessment/Plan Assessment/Plan 1. Multiple liver masses, felt to be possibly metastatic lesions. 2. Encephalopathy, possibly hepatic in origin. 3. History of cirrhosis. 4. Profound thrombocytopenia. 5. Profound anemia. 6. Abnormal cardiac enzymes, possibly related to demand. 7. Acute renal failure. 8. Abnormal liver function tests secondary to above. 9. Seizure 10. NSTEMI type 2 s/p plt adn prbc tx with better levels today trop mildly elevated and min trending up harper likely deman related renal failrue is worse bp is better more awake may need lactulose lft adn lipase both worse ekg no st or t wave abn no sx of acs gi and id noted still qutie ill icu care reepat trop for trend await echo not a candidate for chronic anticoagualtion or antiplt due to sever thormbocytopenia watch cbc trop ekg yumiko Subjective Cardiovascular: Denies: chest pain, lightheadedness, palpitations Respiratory: Denies: shortness of breath Gastrointestinal/Abdominal: Denies: abdominal pain Genitourinary: Denies: burning Subjective more awake than yest Objective Last 24 Hour Vital Signs Date Time Temp Pulse Resp B/P (MAP) Pulse Ox O2 Delivery O2 Flow Rate FiO2 11/19/17 10:00 94 24 111/96 (101) 94 11/19/17 09:00 93 24 105/76 (86) 94 11/19/17 08:00 Nasal Cannula 1.0 11/19/17 08:00 94 11/19/17 08:00 97.6 94 23 105/75 (85) 93 97.6 11/19/17 07:00 93 24 122/93 (103) 96 11/19/17 06:00 93 26 113/72 (86) 95 11/19/17 05:00 91 26 121/75 (90) 95 11/19/17 04:00 97.3 88 23 121/75 (90) 96 97.3 11/19/17 04:00 Venturi Mask 12.0 11/19/17 04:00 88 11/19/17 03:00 85 23 121/75 (90) 97 11/19/17 02:00 76 23 118/83 (95) 97 11/19/17 01:00 76 23 117/79 (92) 97 11/19/17 00:00 80 11/19/17 00:00 98.0 79 23 114/74 (87) 95 98.0 11/19/17 00:00 Venturi Mask 12.0 11/18/17 23:00 77 22 107/80 (89) 95 11/18/17 22:00 80 23 109/76 (87) 95 11/18/17 21:00 78 24 105/75 (85) 100 11/18/17 20:00 98.8 81 22 108/67 (81) 100 98.8 11/18/17 20:00 Venturi Mask 12.0 11/18/17 20:00 78 11/18/17 19:30 Nasal Cannula 1.0 24 11/18/17 19:00 98.6 82 23 113/74 (87) 96 98.6 11/18/17 19:00 95 Nasal Cannula 1.0 24 11/18/17 18:00 78 27 109/73 (85) 90 11/18/17 17:00 75 23 116/76 (89) 98 11/18/17 16:00 97.9 75 20 116/76 (89) 98 97.9 11/18/17 16:00 Venturi Mask 55.0 11/18/17 16:00 Venturi Mask 50.0 11/18/17 16:00 75 11/18/17 15:45 98.2 73 27 112/76 100 Simple Mask 15.0 98.2 11/18/17 15:02 98.2 73 27 112/76 100 Simple Mask 15.0 98.2 11/18/17 14:40 98.3 72 20 98.3 11/18/17 14:10 98.0 76 18 98.0 11/18/17 14:00 98.0 76 18 118/88 90 Simple Mask 10.0 98.0 11/18/17 13:40 97.4 76 18 97.4 11/18/17 13:35 97.2 79 16 97.2 11/18/17 13:30 97.0 77 16 97.0 11/18/17 13:25 97.0 77 14 97.0 11/18/17 12:00 78 16 113/76 98 Nasal Cannula 5.0 11/18/17 10:40 Non-Rebreather 15.0 11/18/17 10:30 97.7 97 20 70/26 100 Non-Rebreather 15.0 97.7 General Appearance: no apparent distress, alert Neck: supple Cardiovascular: normal rate, regular rhythm Respiratory/Chest: lungs clear Abdomen: normal bowel sounds, non tender, soft Extremities: no swelling Intake and Output 11/18/17 11/19/17 19:00 07:00 Intake Total 1610 ml 675 ml Output Total 490 ml 750 ml Balance 1120 ml -75 ml Intake IV Total 1360 ml 675 ml Blood Product 250 ml Output Urine Total 490 ml 750 ml Laboratory Tests Test 11/18/17 10:45 11/18/17 11:00 11/18/17 14:19 11/18/17 18:10 White Blood Count 31.2 K/UL (4.8-10.8) *H Red Blood Count 1.88 M/UL (4.20-5.40) L Hemoglobin 6.2 G/DL (12.0-16.0) *L Hematocrit 19.1 % (37.0-47.0) L Mean Corpuscular Volume 102 FL (80-99) H Mean Corpuscular Hemoglobin 33.2 PG (27.0-31.0) H Mean Corpuscular Hemoglobin Concent 32.7 G/DL (32.0-36.0) Red Cell Distribution Width 37.9 % (11.6-14.8) H Platelet Count 20 K/UL (150-450) L Mean Platelet Volume 5.2 FL (6.5-10.1) L Neutrophils (%) (Auto) % (45.0-75.0) Lymphocytes (%) (Auto) % (20.0-45.0) Monocytes (%) (Auto) % (1.0-10.0) Eosinophils (%) (Auto) % (0.0-3.0) Basophils (%) (Auto) % (0.0-2.0) Differential Total Cells Counted 100 Neutrophils % (Manual) 61 % (45-75) Lymphocytes % (Manual) 21 % (20-45) Monocytes % (Manual) 11 % (1-10) H Eosinophils % (Manual) 0 % (0-3) Basophils % (Manual) 0 % (0-2) Metamyelocytes % 6 % (0-0) H Myelocytes % 1 % (0-0) H Band Neutrophils 0 % (0-8) Nucleated Red Blood Cells 28 /100 WBC Other Cell Type Pathologist comment Platelet Estimate Adequate Platelet Morphology Normal Clumped Platelets 1+ Polychromasia 2+ Anisocytosis 3+ Macrocytosis 2+ Target Cells 1+ Schistocytes 2+ Prothrombin Time 15.3 SEC (9.30-11.50) H Prothromb Time International Ratio 1.5 (0.9-1.1) H Activated Partial Thromboplast Time 26 SEC (23-33) Sodium Level 136 MMOL/L (136-145) Potassium Level 5.0 MMOL/L (3.5-5.1) Chloride Level 101 MMOL/L (98-107) Carbon Dioxide Level 17 MMOL/L (21-32) L Anion Gap 18 mmol/L (5-15) H Blood Urea Nitrogen 88 mg/dL (7-18) H Creatinine 4.0 MG/DL (0.55-1.30) H Estimat Glomerular Filtration Rate 11.7 mL/min (>60) Glucose Level 151 MG/DL (74-106) H Calcium Level 9.0 MG/DL (8.5-10.1) Total Bilirubin 5.8 MG/DL (0.2-1.0) H Direct Bilirubin 3.8 MG/DL (0.0-0.3) H Aspartate Amino Transf (AST/SGOT) 892 U/L (15-37) H Alanine Aminotransferase (ALT/SGPT) 273 U/L (12-78) H Alkaline Phosphatase 397 U/L (46-116) H Ammonia 59 umol/L (11-32) H Total Creatine Kinase 200 U/L (26-308) Troponin I 1.276 ng/mL (0.000-0.056) 1.379 ng/mL (0.000-0.056) Pro-B-Type Natriuretic Peptide 3063 pg/mL (0-125) H Total Protein 7.9 G/DL (6.4-8.2) Albumin 2.3 G/DL (3.4-5.0) L Globulin 5.6 g/dL Albumin/Globulin Ratio 0.4 (1.0-2.7) L Lipase 586 U/L (73-393) H Urine Color Brown Urine Appearance Slightly cloudy Urine pH 5 (4.5-8.0) Urine Specific [place] 1.015 (1.005-1.035) Urine Protein 4+ (NEGATIVE) H Urine Glucose (UA) Negative (NEGATIVE) Urine Ketones Negative (NEGATIVE) Urine Occult Blood 5+ (NEGATIVE) H Urine Nitrite Negative (NEGATIVE) Urine Bilirubin 1+ (NEGATIVE) H Urine Ictotest Negative Urine Urobilinogen 4 MG/DL (0.0-1.0) H Urine Leukocyte Esterase 1+ (NEGATIVE) H Urine RBC 5-10 /HPF (0 - 2) H Urine WBC 5-10 /HPF (0 - 2) H Urine Squamous Epithelial Cells Few /LPF (NONE/OCC) Urine Amorphous Sediment Moderate /LPF (NONE) H Urine Bacteria Many /HPF (NONE) H Urine Opiates Screen Negative (NEGATIVE) Urine Barbiturates Screen Negative (NEGATIVE) Phencyclidine (PCP) Screen Negative (NEGATIVE) Urine Amphetamines Screen Negative (NEGATIVE) Urine Benzodiazepines Screen Negative (NEGATIVE) Urine Cocaine Screen Negative (NEGATIVE) Urine Marijuana (THC) Screen Negative (NEGATIVE) Arterial Blood pH 7.390 (7.350-7.450) Arterial Blood Partial Pressure CO2 24.3 mmHg (35.0-45.0) *L Arterial Blood Partial Pressure O2 205.6 mmHg (75.0-100.0) H Arterial Blood HCO3 14.4 mmol/L (22.0-26.0) L Arterial Blood Oxygen Saturation 99.8 % (92.0-98.0) H Arterial Blood Base Excess 9.2 Cristobal Test Positive Hepatitis A IgM Antibody Pending Hepatitis B Surface Antigen Pending Hepatitis B Core IgM Antibody Pending Hepatitis C Antibody Pending Test 11/19/17 03:00 White Blood Count 21.3 K/UL (4.8-10.8) H Red Blood Count 2.18 M/UL (4.20-5.40) L Hemoglobin 7.4 G/DL (12.0-16.0) L Hematocrit 20.3 % (37.0-47.0) L Mean Corpuscular Volume 93 FL (80-99) # Mean Corpuscular Hemoglobin 34.0 PG (27.0-31.0) H Mean Corpuscular Hemoglobin Concent 36.4 G/DL (32.0-36.0) H Red Cell Distribution Width 32.8 % (11.6-14.8) H Platelet Count 63 K/UL (150-450) #L Mean Platelet Volume 13.7 FL (6.5-10.1) H Neutrophils (%) (Auto) % (45.0-75.0) Lymphocytes (%) (Auto) % (20.0-45.0) Monocytes (%) (Auto) % (1.0-10.0) Eosinophils (%) (Auto) % (0.0-3.0) Basophils (%) (Auto) % (0.0-2.0) Differential Total Cells Counted 100 Neutrophils % (Manual) 63 % (45-75) Lymphocytes % (Manual) 14 % (20-45) L Monocytes % (Manual) 10 % (1-10) Eosinophils % (Manual) 2 % (0-3) Basophils % (Manual) 0 % (0-2) Metamyelocytes % 9 % (0-0) H Myelocytes % 1 % (0-0) H Band Neutrophils 1 % (0-8) Nucleated Red Blood Cells 26 /100 WBC Platelet Estimate Decreased L Platelet Morphology Normal Clumped Platelets 1+ Polychromasia 1+ Anisocytosis 3+ Macrocytosis 2+ Schistocytes 2+ Sodium Level 141 MMOL/L (136-145) Potassium Level 4.4 MMOL/L (3.5-5.1) Chloride Level 106 MMOL/L (98-107) Carbon Dioxide Level 15 MMOL/L (21-32) L Anion Gap 20 mmol/L (5-15) H Blood Urea Nitrogen 94 mg/dL (7-18) H Creatinine 4.0 MG/DL (0.55-1.30) H Estimat Glomerular Filtration Rate 11.7 mL/min (>60) Glucose Level 87 MG/DL (74-106) Calcium Level 9.2 MG/DL (8.5-10.1) Total Bilirubin 7.9 MG/DL (0.2-1.0) H Direct Bilirubin 4.2 MG/DL (0.0-0.3) H Aspartate Amino Transf (AST/SGOT) 1018 U/L (15-37) H Alanine Aminotransferase (ALT/SGPT) 263 U/L (12-78) H Alkaline Phosphatase 357 U/L (46-116) H Troponin I 1.487 ng/mL (0.000-0.056) Total Protein 6.6 G/DL (6.4-8.2) Albumin 2.0 G/DL (3.4-5.0) L Globulin 4.6 g/dL Albumin/Globulin Ratio 0.4 (1.0-2.7) L Amylase Level 97 U/L (25-115) Lipase 1258 U/L (73-393) H Alpha Fetoprotein Pending Carcinoembryonic Antigen Pending Immunoglobulin G Pending Immunoglobulin G1 Pending Immunoglobulin G2 Pending Immunoglobulin G3 Pending Immunoglobulin G4 Pending Anti-Nuclear Antibody Screen Pending F-Actin IgG Antibody Pending Cytomegalovirus IgG Antibody Pending Microbiology Date/Time Source Procedure Growth Status 11/18/17 11:00 Urine,Clean Catch Urine Culture - Preliminary NO GROWTH Resulted Jake Singh MD Nov 19, 2017 10:28
--- NOTE | 2017-11-19 14:38 | Infectious Diseases Prog Note ---
Assessment/Plan Problems: (1) Leukocytosis Assessment & Plan: rule out sepsis , continue daptomycin and aztreonam pending blood culture , monitor WBC (2) Hypotension Assessment & Plan: suspect due to anemia and dehydration , rule out sepsis, continue wide spectrum antibiotics pending cultures , transfuse blood as needed (3) DAVID (acute kidney injury) Assessment & Plan: due to the above, continue hydration and blood transfusion , monitor UOP, avoid nephrotoxics , consult renal (4) LFT elevation Assessment & Plan: suspect liver shock , due to the above, hepatitis panel is pending , monitor LFT closely (5) Focal seizure Assessment & Plan: etiology?, consult neurology continue neuro check (6) GI bleed Assessment & Plan: monitor H/H , transfuse as needed , GI following (7) UTI (urinary tract infection) Assessment & Plan: on aztreonam already pending culture Subjective ROS Limited/Unobtainable: Yes Allergies: Coded Allergies: No Known Allergies (Unverified , 11/18/17) Subjective she was more awake and alert, but confused and yelling , doesn't follow commands , afebrile Objective Vital Signs Last 24 Hour Vital Signs Date Time Temp Pulse Resp B/P (MAP) Pulse Ox O2 Delivery O2 Flow Rate FiO2 11/19/17 13:00 101 27 111/75 (87) 93 11/19/17 12:00 Nasal Cannula 1.0 11/19/17 12:00 97.4 94 23 111/65 (80) 93 97.4 11/19/17 12:00 97 11/19/17 11:00 101 17 114/80 (91) 90 11/19/17 10:00 94 24 111/96 (101) 94 11/19/17 09:00 93 24 105/76 (86) 94 11/19/17 08:48 Nasal Cannula 1.0 24 11/19/17 08:47 96 Nasal Cannula 1.0 24 11/19/17 08:00 Nasal Cannula 1.0 11/19/17 08:00 94 11/19/17 08:00 97.6 94 23 105/75 (85) 93 97.6 11/19/17 07:00 93 24 122/93 (103) 96 11/19/17 06:00 93 26 113/72 (86) 95 11/19/17 05:00 91 26 121/75 (90) 95 11/19/17 04:00 97.3 88 23 121/75 (90) 96 97.3 11/19/17 04:00 Venturi Mask 12.0 11/19/17 04:00 88 11/19/17 03:00 85 23 121/75 (90) 97 11/19/17 02:00 76 23 118/83 (95) 97 11/19/17 01:00 76 23 117/79 (92) 97 11/19/17 00:00 80 11/19/17 00:00 98.0 79 23 114/74 (87) 95 98.0 11/19/17 00:00 Venturi Mask 12.0 11/18/17 23:00 77 22 107/80 (89) 95 11/18/17 22:00 80 23 109/76 (87) 95 11/18/17 21:00 78 24 105/75 (85) 100 11/18/17 20:00 98.8 81 22 108/67 (81) 100 98.8 11/18/17 20:00 Venturi Mask 12.0 11/18/17 20:00 78 11/18/17 19:30 Nasal Cannula 1.0 24 11/18/17 19:00 98.6 82 23 113/74 (87) 96 98.6 11/18/17 19:00 95 Nasal Cannula 1.0 24 11/18/17 18:00 78 27 109/73 (85) 90 11/18/17 17:00 75 23 116/76 (89) 98 11/18/17 16:00 97.9 75 20 116/76 (89) 98 97.9 11/18/17 16:00 Venturi Mask 55.0 11/18/17 16:00 Venturi Mask 50.0 11/18/17 16:00 75 11/18/17 15:45 98.2 73 27 112/76 100 Simple Mask 15.0 98.2 11/18/17 15:02 98.2 73 27 112/76 100 Simple Mask 15.0 98.2 11/18/17 14:40 98.3 72 20 98.3 Height (Feet): 5 Height (Inches): 5.00 Weight (Pounds): 159 General Appearance: WD/WN, no acute distress HEENT: normocephalic, atraumatic, mucous membranes moist, PERRL, supple, no JVD Respiratory/Chest: chest wall non-tender, normal breath sounds, no respiratory distress, no accessory muscle use, decreased breath sounds Cardiovascular: normal peripheral pulses, normal rate, regular rhythm, no gallop/murmur, no JVD Abdomen: soft, non tender, no organomegaly, no mass, no scars, hypoactive bowel sounds, distended Extremities: no cyanosis, no clubbing Skin: no rash, no lesions Neurologic/Psychiatric: alert, disoriented, unresponsiveness Microbiology Date/Time Source Procedure Growth Status 11/18/17 11:00 Urine,Clean Catch Urine Culture - Preliminary NO GROWTH Resulted Laboratory Tests Test 11/18/17 18:10 11/19/17 03:00 Troponin I 1.379 ng/mL (0.000-0.056) 1.487 ng/mL (0.000-0.056) Hepatitis A IgM Antibody Pending Hepatitis B Surface Antigen Pending Hepatitis B Core IgM Antibody Pending Hepatitis C Antibody Pending White Blood Count 21.3 K/UL (4.8-10.8) H Red Blood Count 2.18 M/UL (4.20-5.40) L Hemoglobin 7.4 G/DL (12.0-16.0) L Hematocrit 20.3 % (37.0-47.0) L Mean Corpuscular Volume 93 FL (80-99) # Mean Corpuscular Hemoglobin 34.0 PG (27.0-31.0) H Mean Corpuscular Hemoglobin Concent 36.4 G/DL (32.0-36.0) H Red Cell Distribution Width 32.8 % (11.6-14.8) H Platelet Count 63 K/UL (150-450) #L Mean Platelet Volume 13.7 FL (6.5-10.1) H Neutrophils (%) (Auto) % (45.0-75.0) Lymphocytes (%) (Auto) % (20.0-45.0) Monocytes (%) (Auto) % (1.0-10.0) Eosinophils (%) (Auto) % (0.0-3.0) Basophils (%) (Auto) % (0.0-2.0) Differential Total Cells Counted 100 Neutrophils % (Manual) 63 % (45-75) Lymphocytes % (Manual) 14 % (20-45) L Monocytes % (Manual) 10 % (1-10) Eosinophils % (Manual) 2 % (0-3) Basophils % (Manual) 0 % (0-2) Metamyelocytes % 9 % (0-0) H Myelocytes % 1 % (0-0) H Band Neutrophils 1 % (0-8) Nucleated Red Blood Cells 26 /100 WBC Platelet Estimate Decreased L Platelet Morphology Normal Clumped Platelets 1+ Polychromasia 1+ Anisocytosis 3+ Macrocytosis 2+ Schistocytes 2+ Sodium Level 141 MMOL/L (136-145) Potassium Level 4.4 MMOL/L (3.5-5.1) Chloride Level 106 MMOL/L (98-107) Carbon Dioxide Level 15 MMOL/L (21-32) L Anion Gap 20 mmol/L (5-15) H Blood Urea Nitrogen 94 mg/dL (7-18) H Creatinine 4.0 MG/DL (0.55-1.30) H Estimat Glomerular Filtration Rate 11.7 mL/min (>60) Glucose Level 87 MG/DL (74-106) Calcium Level 9.2 MG/DL (8.5-10.1) Total Bilirubin 7.9 MG/DL (0.2-1.0) H Direct Bilirubin 4.2 MG/DL (0.0-0.3) H Aspartate Amino Transf (AST/SGOT) 1018 U/L (15-37) H Alanine Aminotransferase (ALT/SGPT) 263 U/L (12-78) H Alkaline Phosphatase 357 U/L (46-116) H Total Protein 6.6 G/DL (6.4-8.2) Albumin 2.0 G/DL (3.4-5.0) L Globulin 4.6 g/dL Albumin/Globulin Ratio 0.4 (1.0-2.7) L Amylase Level 97 U/L (25-115) Lipase 1258 U/L (73-393) H Alpha Fetoprotein Pending Carcinoembryonic Antigen Pending Immunoglobulin G Pending Immunoglobulin G1 Pending Immunoglobulin G2 Pending Immunoglobulin G3 Pending Immunoglobulin G4 Pending Anti-Nuclear Antibody Screen Pending F-Actin IgG Antibody Pending Cytomegalovirus IgG Antibody Pending Current Medications Medications (Trade) Dose Ordered Sig/Lluvia Route PRN Reason Start Time Stop Time Status Last Admin Dose Admin Aztreonam 1 gm/ Dextrose 55 ml @ 110 mls/hr Q8H IVPB 11/18/17 17:00 11/25/17 16:59 11/19/17 08:27 Chlorhexidine Gluconate (Samira-Hex 2%) 1 applic DAILY@2000 TOPIC 11/19/17 20:00 12/19/17 19:59 Daptomycin 450 mg/ Sodium Chloride 55 ml @ 100 mls/hr Q48H IV 11/20/17 18:00 11/27/17 17:59 Pantoprazole (Protonix) 40 mg DAILY IVP 11/19/17 09:00 12/19/17 08:59 11/19/17 08:25 Sodium Chloride 1,000 ml @ 75 mls/hr [id number] IV 11/18/17 20:00 12/18/17 19:59 11/19/17 13:42 Ann Gallagher M.D. Nov 19, 2017 14:38
[2017-11-19] MEDS ORDERED: Tubing IV Blood Pump IV ONE (15:54)
[2017-11-19] MEDS ORDERED: Tubing IV Secondary IV ONE (15:54)
[2017-11-19] MEDS ORDERED: NS 275ml ONE (15:54)
--- NOTE | 2017-11-19 17:01 | History and Physical Report ---
DATE OF ADMISSION: 11/18/2017 HISTORY OF PRESENT ILLNESS: This is a 52-year-old female with history of liver cirrhosis and likely hepatitis B and C, there was also liver lesions of likely neoplastic origin. The patient was apparently being transferred to [facility] however en route she apparently had a seizure and was brought to the emergency room here at [facility]. The patient underwent further history however the patient was noted to have an elevated troponin but she is also anemic and had thrombocytopenia. She was admitted to ICU with hypotension. PAST MEDICAL HISTORY: Notable for asthma, history of heart failure, history of hep B, liver cirrhosis, hep C, hypothyroidism, previous UTI. She is a [facility] resident. Her outside labs had shown significant anemia, hemoglobin of 6 for which she had been initially being transported to [facility]. The patient has markedly abnormal liver enzymes and also has hypothyroidism with elevated TSH. Further information is obtained that the patient also has history of hepatorenal disease. There is also positive history of HIV disease. LIST OF MEDICATIONS: Include oxycodone, multivitamin, Synthroid 175 mcg, tramadol, Tylenol, Zofran, milk of magnesia, , and Colace. SOCIAL HISTORY: Not known. The patient is a [facility] resident. FAMILY HISTORY: Not known. REVIEW OF SYSTEMS: Not obtainable. PHYSICAL EXAMINATION: GENERAL: Reveals a female. At this time, she is confused and disoriented. HEENT: Unremarkable. CHEST: Clear breath sounds bilaterally. Normal heart sounds. ABDOMEN: Soft. EXTREMITIES: There is no edema. LABORATORY DATA: Lab testing is notable white count 31,000 which is now improved to 21,000. Hemoglobin improved from 6.2 to 7.4. Platelet count . ABG showed pH 7.3, pCO2 24, pO2 205. Coags show INR 1.5. Chemistry notable for creatinine of 4. Total bilirubin 7.9, direct is 4.2, AST 1018, ALT is 263, alkaline phosphatase 357. Troponin initial 1.27 followed by subsequent 1.37 followed by 1.48. Albumin 2. Lipase is 1258. Toxicology is negative. Urinalysis is notable for few wbc's. There is also evidence of hyperbilirubinemia. IMPRESSION: 1. Seizure. 2. Anemia. 3. Chronic hep C. 4. Liver cirrhosis. 5. Chronic hep B. 6. Liver masses. 7. Troponin leak. 8. Hypotension. 9. Sepsis with leukocytosis. 10. Severe malnutrition. 11. Likely hepatic encephalopathy. 12. Hepatorenal syndrome with elevated renal function. DISCUSSION: 1. Admit to the ICU. The patient at this time is maintaining her airway and oxygenating well. Therefore I will just provide supplemental oxygen. ABG is adequate. 2. Start broad-spectrum antibiotics. 3. Start IV fluids. The patient will be kept NPO, however I will start clear liquids today. 4. Hold home medications. The patient however may require pain medications down the road. 5. The patient has been seen by Cardiology and GI. I will also involve Nephrology given hepatorenal syndrome. We will also attempt to contact her insurance and see if possibly she may be transferred to a regular hospice admission hospital where her physicians are familiar with her care and have extensive history on her past. We will continue to follow carefully. Discussed with RN. Mitch Negron M.D. DR: Kerry JOB#: [id number] CC:
[2017-11-19] MEDS ORDERED: Dyna-Hex 2% Top Sol 2oz TOPIC SCH (20:00)
--- NOTE | 2017-11-19 20:15 | Consultation ---
DATE OF CONSULTATION: 11/19/2017 CONSULTING PHYSICIAN: Leland Rios M.D. REFERRING PHYSICIAN: Mitch Negron M.D. REASON FOR CONSULTATION: 1. Acute kidney injury. 2. Hypotension. HISTORY OF PRESENT ILLNESS: The patient is a 52-year-old female, currently slightly agitated with known cardiac disease/heart failure, hypothyroidism, and asthma, [facility] for blood transfusion. During this transfer, the patient became confused and was routed to [facility]. Noted to have possible gastrointestinal bleeding. Upon presentation, labs were noted. The patient had a hemoglobin of 6.2 with BUN of 94, creatinine of 4, and potassium 4.4. Baseline creatinine is unknown. The patient had an elevated troponin of 1.2, currently 1.4. She was also noted to be slightly hypotensive. PAST MEDICAL HISTORY: 1. Cardiac disease/congestive heart failure. 2. Hypothyroidism. 3. Asthma. PAST SURGICAL HISTORY: Unclear. ALLERGIES: No known drug allergies. SOCIAL HISTORY: No obvious tobacco, alcohol, or illicit drug use. FAMILY HISTORY: Unclear. REVIEW OF SYSTEMS: Cannot obtain as the patient is slightly agitated and combative. PHYSICAL EXAMINATION: VITAL SIGNS: Blood pressure 122/93, pulse ox 96% on room air, respiratory rate 24, pulse 93, and temperature 97.3. GENERAL: The patient is awake, agitated, and slightly combative. HEENT: Extraocular muscles intact. No lymphadenopathy noted. CARDIOVASCULAR: S1 and S2. No rubs or gallops. PULMONARY: Clear to auscultation bilaterally. No rales, rhonchi, or wheeze. ABDOMEN: Nondistended and nontender. EXTREMITY: No overt edema. LABORATORY DATA: Labs dated 11/19/2017, sodium 141, potassium 4.4, BUN 94, and creatinine 4.0. AST and ALT are 1018 and 263 respectively. Alkaline phosphatase 357. Troponin 1.487. Toxicology screen negative. Hemoglobin 6.2, white cell count 31.2, and platelet count of 20,000. ASSESSMENT AND PLAN: 1. Acute kidney injury. Unclear whether or not the patient has underlying chronic kidney disease. However, at this time, acute kidney injury, most likely secondary to multifactorial acute tubular necrosis from sepsis/hypotension and volume depletion. The patient also depleted and is being resuscitated with IV fluids and blood transfusion. Renal ultrasound to rule out the possibility of any obstructive uropathy. We will avoid any nephrotoxins and maintain hemodynamic stability with a mean arterial blood pressure greater than 65 mmHg. 2. Septic shock. At this time, intravenous antibiotics have been initiated and management per Infectious Disease. 3. Acute coronary syndrome. Elevated troponins. Could be secondary to cardiac demand from severe anemia. Cardiology to evaluate and manage. 4. Elevated BUN. Secondary to renal insufficiency and possible gastrointestinal bleed. Continue IV fluids and hemodynamic stability. Status post blood transfusion. Recheck laboratories in the morning. Let me take this opportunity to thank Dr. Negron. Leland Rios MD DR: OSCAR/YBelkys JOB#: [id number] CC:
[2017-11-20] VITALS (10 sets, daily range): BP systolic 77–126; BP diastolic 14–103
[2017-11-20] MEDS: Aztreonam Inj 1 GM in D5W 55 ML IVPB SCH (00:42)
[2017-11-20 05:16] LABS: INR 1.5 (0.9-1.1)
[2017-11-20 06:01] LABS: HEMATOCRIT 18.7 % (37.0-47.0); HEMOGLOBIN 7.1 G/DL (12.0-16.0); MEAN CORPUSCULAR VOLUME 93 FL (80-99); RED BLOOD COUNT 2.01 M/UL (4.20-5.40); RED CELL DISTRIBUTION WIDTH 38.5 % (11.6-14.8)
[2017-11-20 06:14] LABS: ALANINE AMINOTRANSFERASE 360 U/L (12-78); ALBUMIN 2.1 G/DL (3.4-5.0); ALBUMIN/GLOBULIN RATIO 0.4 (1.0-2.7); ALKALINE PHOSPHATASE 333 U/L (46-116); ANION GAP 25 mmol/L (5-15); ASPARTATE AMINO TRANSFERASE 1635 U/L (15-37); BILIRUBIN,TOTAL 10.7 MG/DL (0.2-1.0); BLOOD UREA NITROGEN 112 mg/dL (7-18); CALCIUM 9.2 MG/DL (8.5-10.1); CARBON DIOXIDE 11 MMOL/L (21-32); CHLORIDE 109 MMOL/L (98-107); CREATININE 4.7 MG/DL (0.55-1.30); POTASSIUM 5.5 MMOL/L (3.5-5.1); SODIUM 145 MMOL/L (136-145)
[2017-11-20 06:28] LABS: WHITE BLOOD COUNT 29.7 K/UL (4.8-10.8)
[2017-11-20 06:48] LABS: BILIRUBIN,DIRECT 6.9 MG/DL (0.0-0.3)
--- NOTE | 2017-11-20 06:59 | Pulmonology Progress Note ---
Assessment/Plan Assessment/Plan IMPRESSION: 1. Seizure. 2. Anemia. 3. Chronic hep C. 4. Liver cirrhosis. 5. Chronic hep B. 6. Liver masses. 7. Troponin leak. 8. Hypotension. 9. Sepsis with leukocytosis. 10. Severe malnutrition. 11. Likely hepatic encephalopathy. 12. Hepatorenal syndrome with elevated renal function. DISCUSSION: 1. Now in RACHAEL. The patient at this time is maintaining her airway and oxygenating well. Therefore I will just provide supplemental oxygen. ABG is adequate. 2. Continue broad-spectrum antibiotics. 3. Continue IV fluids. On clear liquids today. 4. Hold home medications. The patient however may require pain medications down the road. 5. The patient has been seen by Cardiology, renal and GI. I will continue to follow carefully. Discussed with RN. Mitch Negron M.D. Subjective Interval Events: Yelling without reason. Awake; looks pale Constitutional: Reports: no symptoms HEENT: Repors: no symptoms Respiratory: Reports: no symptoms Cardiovascular: Reports: no symptoms Gastrointestinal/Abdominal: Reports: no symptoms Genitourinary: Reports: no symptoms Allergies: Coded Allergies: No Known Allergies (Unverified , 11/18/17) Objective Last 24 Hour Vital Signs Date Time Temp Pulse Resp B/P (MAP) Pulse Ox O2 Delivery O2 Flow Rate FiO2 11/20/17 04:06 96 11/20/17 04:05 Nasal Cannula 2.0 11/20/17 04:04 96 38 119/76 (90) 94 11/20/17 03:00 98.0 98 38 119/76 (90) 94 98.0 11/20/17 02:00 99 36 126/103 (111) 93 11/20/17 01:00 98 38 113/83 (93) 91 11/20/17 00:07 100 11/20/17 00:06 Nasal Cannula 1.0 11/20/17 00:00 98.7 100 35 109/77 (88) 91 98.7 11/19/17 23:00 100 35 121/77 (92) 92 11/19/17 22:00 99 33 111/73 (86) 92 11/19/17 21:00 98 32 121/78 (92) 93 11/19/17 20:00 98.0 97 30 121/78 (92) 93 98.0 11/19/17 20:00 97 11/19/17 20:00 Nasal Cannula 1.0 11/19/17 19:14 97 Nasal Cannula 1.0 24 11/19/17 19:14 Nasal Cannula 1.0 24 11/19/17 19:00 97 30 105/74 (84) 93 11/19/17 18:00 96 31 105/86 (92) 94 11/19/17 17:00 97 29 110/80 (90) 93 11/19/17 16:00 97.4 95 31 114/75 (88) 93 97.4 11/19/17 16:00 95 11/19/17 16:00 Nasal Cannula 1.0 11/19/17 15:00 95 29 101/74 (83) 91 11/19/17 14:00 96 22 105/89 (94) 96 11/19/17 13:00 101 27 111/75 (87) 93 11/19/17 12:00 Nasal Cannula 1.0 11/19/17 12:00 97.4 94 23 111/65 (80) 93 97.4 11/19/17 12:00 97 11/19/17 11:00 101 17 114/80 (91) 90 11/19/17 10:00 94 24 111/96 (101) 94 11/19/17 09:00 93 24 105/76 (86) 94 11/19/17 08:48 Nasal Cannula 1.0 24 11/19/17 08:47 96 Nasal Cannula 1.0 24 11/19/17 08:00 Nasal Cannula 1.0 11/19/17 08:00 94 11/19/17 08:00 97.6 94 23 105/75 (85) 93 97.6 11/19/17 07:00 93 24 122/93 (103) 96 Intake and Output 11/19/17 11/20/17 19:00 07:00 Intake Total 878.75 ml 730 ml Output Total 965 ml 800 ml Balance -86.25 ml -70 ml Intake Oral 0 ml IV Total 878.75 ml 730 ml Output Urine Total 965 ml 800 ml General Appearance: no acute distress HEENT: normocephalic Respiratory/Chest: chest wall non-tender, lungs clear Cardiovascular: normal peripheral pulses, normal rate Abdomen: normal bowel sounds Microbiology Date/Time Source Procedure Growth Status 11/18/17 11:25 Blood Blood Culture - Preliminary NO GROWTH AFTER 24 HOURS Resulted 11/18/17 11:15 Blood Blood Culture - Preliminary NO GROWTH AFTER 24 HOURS Resulted 11/18/17 11:00 Urine,Clean Catch Urine Culture - Preliminary NO GROWTH Resulted Laboratory Tests 11/20/17 04:00: White Blood Count 29.7*H, Red Blood Count 2.01L, Hemoglobin 7.1L, Hematocrit 18.7L, Mean Corpuscular Volume 93, Mean Corpuscular Hemoglobin 35.5H, Mean Corpuscular Hemoglobin Concent 38.1H, Red Cell Distribution Width 38.5H, Platelet Count 37L, Mean Platelet Volume 5.7L, Neutrophils (%) (Auto) , Lymphocytes (%) (Auto) , Monocytes (%) (Auto) , Eosinophils (%) (Auto) , Basophils (%) (Auto) , Neutrophils % (Manual) [Pending], Lymphocytes % (Manual) [Pending], Platelet Estimate [Pending], Platelet Morphology [Pending], Prothrombin Time 15.5H, Prothromb Time International Ratio 1.5H, Sodium Level 145, Potassium Level 5.5H, Chloride Level 109H, Carbon Dioxide Level 11L, Anion Gap 25H, Blood Urea Nitrogen 112H, Creatinine 4.7H, Estimat Glomerular Filtration Rate 9.7, Glucose Level 99, Calcium Level 9.2, Total Bilirubin 10.7H , Direct Bilirubin [Pending], Aspartate Amino Transf (AST/SGOT) 1635H, Alanine Aminotransferase (ALT/SGPT) 360H, Alkaline Phosphatase 333H, Ammonia 34H, Troponin I 5.905H, Total Protein 7.1, Albumin 2.1L, Globulin 5.0, Albumin/ Globulin Ratio 0.4L Current Medications Medications (Trade) Dose Ordered Sig/Lluvia Route PRN Reason Start Time Stop Time Status Last Admin Dose Admin Aztreonam 1 gm/ Dextrose 55 ml @ 110 mls/hr Q8H IVPB 11/20/17 09:00 11/25/17 16:59 Chlorhexidine Gluconate (Samira-Hex 2%) 1 applic DAILY@1999 TOPIC 11/20/17 20:00 12/19/17 19:59 Daptomycin 450 mg/ Sodium Chloride 55 ml @ 100 mls/hr Q48H IV 11/20/17 18:00 11/27/17 17:59 Pantoprazole (Protonix) 40 mg DAILY IVP 11/20/17 09:00 12/19/17 08:59 Sodium Chloride 1,000 ml @ 75 mls/hr [id number] IV 11/20/17 04:15 12/18/17 19:59 11/20/17 04:16 Mitch Negron MD Nov 20, 2017 06:59
[2017-11-20] MEDS ORDERED: Morphine Sulfate 2mg/ml Inj(IV/IM USE ONLY) IVP SCH (07:38)
--- NOTE | 2017-11-20 08:29 | Nephrology Progress Note ---
Assessment/Plan Assessment/Plan 1. DAVID- mutlifact ATN (hypotension/sepsis/vol dep) - BUN and Cr worsened with met acidosis and mild hyperkalemia - levophed + IVFs and sodium biacrb ordered - HD today pending dialysis catheter placement - patient unable to sing consent and no family available, this is an emergent situation 2. Resp FL- intubated on vent 3. Septic Shock - levophed and fluid boluses 4. Anemia- GI bleed? prn bld tx and GI mgmt 5. ACS- Trop I at 5. Defer to cardiology 6. Transaminitis- ? shock liver, tylenol level ordered with Hep panels 7. HIV- per ID Subjective Date patient seen: Nov 20, 2017 Time patient seen: 08:22 ROS Limited/Unobtainable: Yes Allergies: Coded Allergies: No Known Allergies (Unverified , 11/18/17) Subjective Patient just respiratory arrest and TX back to ICU intubated Objective Last 24 Hour Vital Signs Date Time Temp Pulse Resp B/P (MAP) Pulse Ox O2 Delivery O2 Flow Rate FiO2 11/20/17 04:06 96 11/20/17 04:05 Nasal Cannula 2.0 11/20/17 04:04 96 38 119/76 (90) 94 11/20/17 03:00 98.0 98 38 119/76 (90) 94 98.0 11/20/17 02:00 99 36 126/103 (111) 93 11/20/17 01:00 98 38 113/83 (93) 91 11/20/17 00:07 100 11/20/17 00:06 Nasal Cannula 1.0 11/20/17 00:00 98.7 100 35 109/77 (88) 91 98.7 11/19/17 23:00 100 35 121/77 (92) 92 11/19/17 22:00 99 33 111/73 (86) 92 11/19/17 21:00 98 32 121/78 (92) 93 11/19/17 20:00 98.0 97 30 121/78 (92) 93 98.0 11/19/17 20:00 97 11/19/17 20:00 Nasal Cannula 1.0 11/19/17 19:14 97 Nasal Cannula 1.0 24 11/19/17 19:14 Nasal Cannula 1.0 24 11/19/17 19:00 97 30 105/74 (84) 93 11/19/17 18:00 96 31 105/86 (92) 94 11/19/17 17:00 97 29 110/80 (90) 93 11/19/17 16:00 97.4 95 31 114/75 (88) 93 97.4 11/19/17 16:00 95 11/19/17 16:00 Nasal Cannula 1.0 11/19/17 15:00 95 29 101/74 (83) 91 11/19/17 14:00 96 22 105/89 (94) 96 11/19/17 13:00 101 27 111/75 (87) 93 11/19/17 12:00 Nasal Cannula 1.0 11/19/17 12:00 97.4 94 23 111/65 (80) 93 97.4 11/19/17 12:00 97 11/19/17 11:00 101 17 114/80 (91) 90 11/19/17 10:00 94 24 111/96 (101) 94 11/19/17 09:00 93 24 105/76 (86) 94 11/19/17 08:48 Nasal Cannula 1.0 24 11/19/17 08:47 96 Nasal Cannula 1.0 24 Intake and Output 11/19/17 11/20/17 19:00 07:00 Intake Total 878.75 ml 730 ml Output Total 965 ml 800 ml Balance -86.25 ml -70 ml Intake Oral 0 ml IV Total 878.75 ml 730 ml Output Urine Total 965 ml 800 ml Laboratory Tests 11/20/17 04:00: White Blood Count 29.7*H, Red Blood Count 2.01L, Hemoglobin 7.1L, Hematocrit 18.7L, Mean Corpuscular Volume 93, Mean Corpuscular Hemoglobin 35.5H, Mean Corpuscular Hemoglobin Concent 38.1H, Red Cell Distribution Width 38.5H, Platelet Count 37L, Mean Platelet Volume 5.7L, Neutrophils (%) (Auto) , Lymphocytes (%) (Auto) , Monocytes (%) (Auto) , Eosinophils (%) (Auto) , Basophils (%) (Auto) , Neutrophils % (Manual) [Pending], Lymphocytes % (Manual) [Pending], Platelet Estimate [Pending], Platelet Morphology [Pending], Prothrombin Time 15.5H, Prothromb Time International Ratio 1.5H, Sodium Level 145, Potassium Level 5.5H, Chloride Level 109H, Carbon Dioxide Level 11L, Anion Gap 25H, Blood Urea Nitrogen 112H, Creatinine 4.7H, Estimat Glomerular Filtration Rate 9.7, Glucose Level 99, Calcium Level 9.2, Total Bilirubin 10.7H , Direct Bilirubin 6.9H, Aspartate Amino Transf (AST/SGOT) 1635H, Alanine Aminotransferase (ALT/SGPT) 360H, Alkaline Phosphatase 333H, Ammonia 34H, Troponin I 5.905H, Total Protein 7.1, Albumin 2.1L, Globulin 5.0, Albumin/ Globulin Ratio 0.4L Height (Feet): 5 Height (Inches): 5.00 Weight (Pounds): 160 General Appearance: other - intubated EENT: PERRL/EOMI Neck: non-tender, normal alignment Cardiovascular: normal rate, regular rhythm Respiratory/Chest: chest wall non-tender, lungs clear Abdomen: normal bowel sounds, non tender Edema: no edema noted Arm (L), no edema noted Arm (R), no edema noted Leg (L), no edema noted Leg (R), no edema noted Pedal (L), no edema noted Pedal (R), no edema noted Generalized Leland Rios M.D. Nov 20, 2017 08:29
[2017-11-20] MEDS ORDERED: Sodium Bicarbonate 50ml Carp IV ONE (08:30)
[2017-11-20 08:51] LABS: PLATELET COUNT 60 K/UL (150-450)
[2017-11-20] MEDS ORDERED: Aztreonam Inj 1 GM in D5W 55 ML IVPB SCH ×5 (09:00→17:00)
[2017-11-20] MEDS ORDERED: Pantoprazole Inj IVP SCH ×2 (09:00)
[2017-11-20] MEDS ORDERED: Morphine Sulfate 2mg/ml Inj(IV/IM USE ONLY) IVP ONE (09:45)
[2017-11-20] MEDS ORDERED: Sodium Bicarbonate 50ml Carp ONE (10:14)
[2017-11-20] MEDS ORDERED: Calcium Chloride 100mg/ml Vial ONE (10:14)
[2017-11-20] MEDS ORDERED: Amiodarone 150mg/ml 3ml Amp ONE (10:14)
[2017-11-20] MEDS ORDERED: NS Irrig 1000ml ONE (10:14)
--- NOTE | 2017-11-20 13:06 | Cardiology Report ---
APPROVED REPORT EXAM: Two-dimensional and M-mode echocardiogram with Doppler and color Doppler. INDICATION SEIZURE DISODER M-Mode DIMENSIONS IVSd0.7 (0.7-1.1cm)Left Atrium (MM)2.1 (1.6-4.0cm) LVDd3.7 (3.5-5.6cm)Aortic Root2.7 (2.0-3.7cm) PWd0.9 (0.7-1.1cm)Aortic Cusp Exc.2.0 (1.5-2.0cm) LVDs2.2 (2.5-4.0cm) PWs1.1 cm Technically limited and difficult study due to poor acoustical windows. Patient on restrains and moving. Normal left ventricular chamber size, systolic function and wall motion. Septal wall incursion is suggestive of mildly increaed RV pressure/volume overload. No evidence of left ventricular hypertrophy. No evidence of pericardial or pleural effusion. Left cardiac chamber sizes are within normal limits. Mild right atrial and right ventricular enlargement by 2D.Reduced right ventricular systolic function. Focal aortic valve sclerosis with adequate cusp excursion. Thickened mitral valve leaflets with normal excursion. Mild mitral annulus and aortic root calcification. Pulmonic valve not well visualized. Normal tricuspid valve structure. IVC is normal in size and collapsible with respiration. A color flow and spectral Doppler study was performed and revealed: No aortic regurgitation. No mitral regurgitation. Mild tricuspid regurgitation. Tricuspid systolic velocities suggests peak right ventricular systolic pressure of 46 mmHg Consistent with mild pulmonary hypertension.
--- NOTE | 2017-11-20 13:07 | Emergency Room Report ---
History of Present Illness General Chief Complaint: Dyspnea/Respdistress Source: Medical Record Present Illness Allergies: Coded Allergies: No Known Allergies (Unverified , 11/18/17) Nursing Documentation-[facility] Past Medical History: No History, Except For Hx Cardiac Problems: Yes - HF, hypothyroidism Hx Asthma: Yes Physical Exam Vital Signs Date Time Temp Pulse Resp B/P (MAP) Pulse Ox O2 Delivery O2 Flow Rate FiO2 11/18/17 10:30 97.7 97 20 70/26 100 Non-Rebreather 15.0 97.7 11/18/17 19:00 24 Procedures Critical Care Time Critical Care Time i. I feel this is a highly complex case requiring extensive working including EKG/Rhythm strip, Xray/CT/US, Blood/urine lab work, repeat exams while in ED, and administration of strong opiates/narcotics for pain control, admission to hospital or close patient follow up. Total time: 30 min bedside evaluation and treatment excludes procedures (EKG). Reason for critical care: cardiac arrest, unresponsive Possible complications: hypotension, hypertension, VA, shock, arrhythmias, metabolic acidosis, end organ damage, respiratory failure. Interventions: intubation. chest compressions. epi, calcium, bicarbonate, defibrillation, amiodarone Course: Patient in respiratory distress. Intubated. Moved ICU. Patient became bradycardic and then lost pulses. Patient underwent chest compressions and given medications with return of pulses. The Levophed started. Patient had another episode of cardiac arrest. Asystole. Additional round of compressions and medications given. 1 round of ventricular fibrillation and was subsequent shocked. Given amiodarone. Patient remains in asystole. Prognosis poor assisted of efforts terminated. Patient expires Consultations: nursing staff, EMS, family Performed by: Dr Pagan Tolerated well condition = j. because of unstable vital signs this patient had a condition that could potentially threaten life or limb. I feel this is a critical patient who required my full attention while patient was considered critical. Total Critical Care Time excluding procedures was greater than 35 minutes Cardioversion Cardioversion: Consent: Emergent Indication: Other - Vfib Type: Synchonis Response: Other - PEA Attempts: One Patient Tolerated: Poor Complications: Other - CPR/Code Blue CPR/Code Blue Narrative see code blue sheet for full narrative Intubation Intubation : Consent: Emergent Intubation Method: orotracheal Tube Size (cm): 7.5 Medications: Etomidate, Rocuronium Breath Sounds after Intubation: equal Intubation Complications: no complications Post Intubation Xray: Yes Attempts: One Patient Tolerated: Well Complications: None Medical Decision Making Diagnostic Impression: Primary Impression: Focal seizure Additional Impressions: Elevated lipase Hepatitis C Qualified Codes: B18.2 - Chronic viral hepatitis C GI bleed Qualified Codes: K92.2 - Gastrointestinal hemorrhage, unspecified Coagulopathy Sepsis Qualified Codes: A41.9 - Sepsis, unspecified organism UTI (urinary tract infection) Qualified Codes: N39.0 - Urinary tract infection, site not specified Profound anemia Qualified Codes: D64.9 - Anemia, unspecified DAVID (acute kidney injury) Hepatic encephalopathy Thrombocytpenia ER Course I was called to the stepdown unit to intubate this patient. Patient in respiratory distress. History of new onset renal failure. I intubated the patient. Patient was moved ICU and coded. Chest compressions started. Given ACLS meds. Given calcium and bicarbonate. Patient regained pulses Patient had another episode of cardiac arrest. Rhythm asystole. Given calcium and bicarbonate. Given additional doses of epinephrine. Patient had one episode of V. fib and was subsequent shocked and returned into asystole. Amiodarone given. Patient remains in asystole. Patient was extremely acidotic and required dialysis however is unstable for dialysis. Prognosis is poor given multiple episodes of cardiac arrest. Resuscitative efforts terminated. Patient expires Last Vital Signs Date Time Temp Pulse Resp B/P (MAP) Pulse Ox O2 Delivery O2 Flow Rate FiO2 11/20/17 09:30 74 20 121/82 (95) 100 11/20/17 08:15 100 11/20/17 08:00 Mechanical Ventilator 11/20/17 04:05 2.0 11/20/17 03:00 98.0 98.0 Status: worsened Disposition: Condition: Referrals: [facility],REFERRING (PCP) Oswald Pagan MD Nov 20, 2017 13:07
--- NOTE | 2017-11-20 13:32 | Cardiology Report ---
APPROVED REPORT EKG Measurement Heart [id number] Normal sinus rhythm Low voltage QRS Nonspecific T wave abnormality Prolonged QT Abnormal ECG
[2017-11-20] MEDS ORDERED: DAPTOmycin 450 MG in NS 55 ML IV SCH ×8 (18:00)
[2017-11-20] MEDS ORDERED: Dyna-Hex 2% Top Sol 2oz TOPIC SCH ×3 (20:00)
[2017-11-21] MEDS ORDERED: Pantoprazole Inj IVP SCH (09:00)
--- NOTE | 2017-11-22 12:05 | Discharge Summary ---
Discharge Summary Hospital Course Date of Admission Nov 18, 2017 at 12:23 Date of Discharge Nov 20, 2017 at 10:15 Admitting Diagnosis GI bleed, seizure HPI Maricarmen Houston is a 52 year old female who was admitted on Nov 18, 2017 at 12:23 for Gastro Intestinal Bleed, Seizure Hospital Course summary #[id number] Discharge Discharge Disposition Patient Discharge Instructions For Congestive Heart Failure Reminder I have been assigned to complete a D/C Summary on this account. I was not involved in the patient management Akilah Polanco NP Nov 22, 2017 12:05
--- NOTE | 2017-11-23 03:30 | Discharge Summary 2 SIG ---
SUMMARY DATE OF ADMISSION: 11/18/2017 DATE OF EXPIRATION: 11/20/2017 REASON FOR ADMISSION: 52-year-old female with past medical history of congestive heart failure, asthma, hypothyroidism, was waiting for transfer to [facility] for blood transfusion when she became altered. Paramedics were called. Accu-Chek was 141. The paramedics noted gaze deviated to the right with beating of eyes. No other tonic-clonic activity. No history of head trauma. Laboratory workup done in the senior living revealed leukocytosis of 20 and hemoglobin 6.1. The patient had a prior history of hospitalization at [facility] for congestive heart failur. At that time she was diagnosed with a right upper quadrant mass and liver masses, possibly neoplasm. The patient with a history of hepatitis C, but without history of encephalopathy. The patient was brought to [facility] for further evaluation and management. Upon evaluation blood pressure was low. The patient was placed on 100% nonrebreathing mask. Troponin was elevated to 1.276. BUN 88 and creatinine 4.0. Total bilirubin 5.8. Direct bilirubin 3.8. AST 892 and ALT 273. Ammonia 59. ProBNP 3063. Albumin 2.3. Lipase 586. Anion gap 18. WBC 31.3, hemoglobin 6.2, hematocrit 19.1, and platelets 20,000. INR 1.5. Urine toxicology screen was negative. Urinalysis was consistent with evidence of urinary tract infection. ABG initially on 100% nonbreathing mask was stable. CT of the head revealed no acute intracranial pathology. Evidence of sinus disease with complete opacification of the right maxillary sinus. Chest x-ray revealed no definite focal consolidation, pleural effusion, or pneumothorax. ADMITTING DIAGNOSES: The patient was admitted with diagnoses of 1. Sepsis with leukocytosis. 2. Seizure. 3. Coagulopathy. 4. Liver cirrhosis. 5. Transaminitis. 6. Gastrointestinal bleeding. 7. Profound thrombocytopenia. 8. Hepatic encephalopathy. 9. Profound anemia. 10. Acute kidney injury. 11. Urinary tract infection. 12. Hepatitis C. 13. Elevated lipase. 14. Liver masses likely metastatic. 15. Elevated troponin. HOSPITAL COURSE: The patient was admitted to ICU. The patient was started on the IV hydration. [employer] closely followed. Serial troponin were followed. Troponin trending up with peak to the 5.905 on 11/20/2017. Echocardiogram revealed normal left ventricular chamber size, systolic function, and wall motion. Septal wall incursion was suggestive of mildly increased RV pressure/volume overload. No evidence of pericardial pleural effusion. Right ventricular systolic pressure of 46 consistent with mild pulmonary hypertension. According to crystal gazer, the patient was not a candidate for chronic anticoagulation or antiplatelet therapy, given severe thrombocytopenia. EKG revealed no ST or T-wave abnormality. Per crystal gazer, abnormal cardiac enzymes were possibly related to demand ischemia and probably non-STEMI type 2. The patient was transfused with two units of packed red blood cells. Hemoglobin minimally improved from 6.2 to 7.4 and hematocrit from 19.1 to 20.3. The next day hemoglobin started to drop again. Platelets improved up to 60,000. Gastrointestinal specialist seen and evaluated the patient. LFTs were trending up. Alpha-fetoprotein and CEA were significantly elevated with CEA being 237.9 and alpha-fetoprotein 155.2. Abdominal ultrasound showed possible liver masses. CT of the abdomen and pelvis revealed multiple liver lesions, possible ovarian cyst versus neoplasm and common bile duct dilatation. of 8 mm. Oncology consult was requested. Biopsy results of liver lesion were requested from [facility]. Anemia workup was initiated. Stool for occult blood was ordered. Hemoglobin and hematocrit were closely monitored with goal to keep hemoglobin above 7. Bowel regimen instituted. The patient was on PPI. Serology for herpes simplex virus, cytomegalovirus, as well as the autoimmune markers such as CONNIE, SMA, and IgG were ordered. Lipase up to 1258. Renal failure and liver failure were getting worse. Infectious Disease doctor closely followed. The patient was on antibiotic as per ID recommendation. Blood and urine cultures were negative. The patient continued to be with severe leukocytosis. On the day of expiration, WBC 29.7. The patient was afebrile. On 11/20/2017, AST 1635 and ALT 360. BUN up to 112 and creatinine 4.7. Hepatitis panel was consistent with hepatitis C. Tree Dead[employer] closely followed. According to lime boiler, the patient has acute kidney injury, which was multifactorial and acute tubular necrosis was due to hypotension. The patient possibly has hepatorenal syndrome. On 11/20/2017, blood pressure was low. The patient required starting on Levophed drip and continue IV fluids with sodium bicarbonate. Hemodialysis was planned for 11/20/2017. Placement of hemodialysis catheter was ordered. The patient remained extremely acidotic and required dialysis, but was unstable for dialysis. On 11/20/2017, the patient suffered from cardiopulmonary arrest. Initially, she was able to be revived , but then suffered the second cardiac arrest and remained in asystole. All resuscitative efforts were unfortunately futile. Prognosis was poor given multiple severe comorbidities. Resuscitative efforts terminated, and the patient . The patient was pronounced at 10:15 on 11/20/2017. CAUSE OF : Cardiopulmonary arrest. FINAL DIAGNOSES: 1. Sepsis with leukocytosis. 2. Septic shock. 3. Status post cardiopulmonary arrest. 4. Status post intubation after cardiac arrest. 5. Profound anemia status post blood transfusion. 6. Profound thrombocytopenia. 7. Hepatic encephalopathy. 8. Acute kidney injury. 9. Acute tubular necrosis due to unstable hemodynamics. 10. Hepatitis C. 11. Urinary tract infection. 12. Elevated lipase. 13. Multiple liver masses likely metastatic. 14. Ovarian mass. 15. Severe malnutrition. 16. Possible hepatorenal syndrome. 17. Abnormal cardiac enzyme, possibly related to demand. 18. Non-STEMI type 2. 19. Seizure. 20. Gastrointestinal bleeding. 21. Liver cirrhosis. 22. Coagulopathy. 23. Liver failure, elevated tumor markers. Mitch eNgron M.D. I have been assigned to dictate discharge summary on this account and I was not involved in the patient's management. Akilah Banksaby N.PColleen DR: ISRA JOB#: [id number] CC: ELLEN
--- NOTE | 2017-11-25 16:32 | Cardiology Report ---
APPROVED REPORT EKG Measurement Heart [id number] [id number] Normal sinus rhythm Low voltage QRS Prolonged QT Abnormal ECG
--- NOTE | 2017-11-25 16:51 | Cardiology Report ---
APPROVED REPORT EKG Measurement Heart [id number] [id number] Normal sinus rhythm Low voltage QRS Borderline ECG
== END 2017-11-20 10:15 | disposition expired | DRG 720 ==
LOC: EDBD 10:29 → EMR 11:15 → EDBEDREQSVC 11:46 → ICU 12:23 → EDBEDREQ 12:31 → 2W 11-20 04:00 → ICU 11-20 08:15
PROC: 30233N1 Transfusion of Nonautologous Red Blood Cells into Peripheral Vein, Percutaneous Approach (ICD-10-PCS; principal; 2017-11-18)
PROC: 30233R1 Transfusion of Nonautologous Platelets into Peripheral Vein, Percutaneous Approach (ICD-10-PCS; 2017-11-18)
PROC: 5A1935Z Respiratory Ventilation, Less than 24 Consecutive Hours (ICD-10-PCS; 2017-11-20)
PROC: 0BH17EZ Insertion of Endotracheal Airway into Trachea, Via Natural or Artificial Opening (ICD-10-PCS; 2017-11-20)
PROC: 5A2204Z Restoration of Cardiac Rhythm, Single (ICD-10-PCS; 2017-11-20)
PROC: 5A12012 Performance of Cardiac Output, Single, Manual (ICD-10-PCS; 2017-11-20)
DX: A41.9 Sepsis, unspecified organism (principal); N17.0 Acute kidney failure with tubular necrosis; I21.4 Non-ST elevation (NSTEMI) myocardial infarction; K76.7 Hepatorenal syndrome; E43 Unspecified severe protein-calorie malnutrition; R65.21 Severe sepsis with septic shock; K92.2 Gastrointestinal hemorrhage, unspecified; C78.7 Secondary malignant neoplasm of liver and intrahepatic bile duct; D68.4 Acquired coagulation factor deficiency; D69.6 Thrombocytopenia, unspecified; R56.9 Unspecified convulsions; K72.90 Hepatic failure, unspecified without coma; D64.9 Anemia, unspecified; B19.10 Unspecified viral hepatitis B without hepatic coma; N83.9 Noninflammatory disorder of ovary, fallopian tube and broad ligament, unspecified; N39.0 Urinary tract infection, site not specified; E03.9 Hypothyroidism, unspecified; K74.60 Unspecified cirrhosis of liver; I49.01 Ventricular fibrillation; B18.2 Chronic viral hepatitis C; R74.0 Nonspecific elevation of levels of transaminase and lactic acid dehydrogenase [LDH]; I27.20 Pulmonary hypertension, unspecified
CPT/HCPCS: 36415; 36600; 70450; 71045; 80053; 80307; 80329; 81003; 82105; 82140; 82150; 82248; 82378; 82550; 82784; 82787; 82803; 82962; 83690; 83880; 84484; 85007; 85025; 85610; 85730; 86039; 86235; 86644; 86705; 86709; 86803; 86850; 86900; 86901; 86920; 87040; 87081; 87086; 87340; 92950; 93005; 93306; 94002; 94760; 99291; J0171